=== PATIENT | female | born 1995 | race Caucasian/White ===

== ENCOUNTER 2019-03-12 17:13 | Emergency (ER) | payer OTHER ==
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
[2019-03-12] MEDS ORDERED: Sodium Chloride 0.9% 1,000 ML IV ONE (17:21)
[2019-03-12] MEDS ORDERED: cefTRIAXone 1 GM in Premix Bag 1 BAG IV ONE (18:02)
--- NOTE | 2019-03-12 19:23 | US ---
INDICATION: Early viability check. TECHNIQUE: Ultrasound OB pelvis transabdominal. Real-time espinoza-scale imaging of the fetus was performed as well as color Doppler and spectral Doppler analysis of the umbilical artery. COMPARISON: None. FINDINGS: Sonographic imaging demonstrates a single living intrauterine gestation. Fetus demonstrates a regular cardiac rate of 185 beats per minute. Fetus has a breech orientation. The placenta lies posterior without evidence of placenta previa. Amniotic fluid volume appears normal with an MYRANDA of 9.6 cm. Cervix measures 3.2 cm in length. The following biometric measurements were obtained: Biparietal diameter: 2.3 cm, 13 weeks 6 days. Head circumference: 8.9 cm, 14 weeks 0 days. Abdominal circumference: 6.9 cm, 13 weeks 4 days. Femur length: 1.1 cm, 13 weeks 2 days. The composite ultrasound gestational age is calculated at 13 weeks 4 days with an estimated sonographic due date of September 13, 2019. The weight is estimated at 76 grams. Ovaries and adnexa are unremarkable. IMPRESSION.: Viable intrauterine with an estimated ultrasound age of 13 weeks 4 days. No abnormalities seen. Dictated by Wilson West MD @ Mar 12 2019 7:14PM Signed by Dr. Wilson West @ Mar 12 2019 7:22PM
== END 2019-03-12 19:50 | disposition home or self-care (01) ==
LOC: MW.ED 17:13
DX: O99.89 Other specified diseases and conditions complicating pregnancy, childbirth and the puerperium (principal); R10.32 Left lower quadrant pain; R10.31 Right lower quadrant pain; R10.84 Generalized abdominal pain; O23.41 Unspecified infection of urinary tract in pregnancy, first trimester; Z88.0 Allergy status to penicillin; Z3A.13 13 weeks gestation of pregnancy
CPT/HCPCS: 76801; 81001; 84702; 85025; 86900; 86901; 96365; 99284; J0696; J7040

== ENCOUNTER 2019-03-19 19:20 | Emergency (ER) | payer OTHER ==
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
--- NOTE | 2019-03-19 21:39 | US ---
INDICATION: BLEEDING,HX UTI INDICATION: Bleeding history of urinary tract infection TECHNIQUE: Ultrasound OB pelvis transabdominal. Real time espinoza scale imaging of the fetus was performed as well as color Doppler and spectral Doppler analysis of the umbilical artery. COMPARISON: FINDINGS: LMP: 12/07/2018 Gestational age by LMP: 14 weeks 4 days Estimated due date by LMP: 12/07/2018 Sonographic imaging demonstrates a single living intrauterine gestation. Fetus demonstrates a regular cardiac rate of 158 beats per minute. Fetus has a breech orientation. The placenta lies posterior without evidence of placenta previa. Amniotic fluid volume appears normal. Cervix length 3.5 centimeters. The composite ultrasound gestational age is calculated at 15 weeks 1 day with an estimated sonographic due date of 14 weeks 4 days with estimated due date of 09/09/2019. The estimated weight is 110 grams. The following biometric measurements were obtained: Biparietal diameter: 2.85 centimeters consistent with a gestational age of 15 weeks 1 day Head circumference: 10.42 centimeters consistent with a gestational age of 15 weeks 0 days Abdominal circumference: 9.19 centimeters consistent with a gestational age of 15 weeks 3 days Femur length: 3.4 of 5 2 centimeters consistent with a gestational age 14 weeks 4 days survey not requested IMPRESSION: Single intrauterine with breech presentation and heart rate of 150 beats per minute. Composite gestational age by ultrasound evaluation 15 weeks 1 day. This compares the gestational age by LMP is 14 weeks 4 days. Normal-appearing placenta without evidence for previa. Dictated by Saul Juarez MD @ 03/19/2019 9:38:08 PM Dictated by: Saul Juarez MD @ 03/19/2019 21:38:20 (Electronically Signed)
== END 2019-03-19 22:03 | disposition home or self-care (01) ==
LOC: MW.ED 19:20
DX: O20.0 Threatened abortion (principal); O23.41 Unspecified infection of urinary tract in pregnancy, first trimester; Z88.0 Allergy status to penicillin; Z3A.14 14 weeks gestation of pregnancy
CPT/HCPCS: 36415; 76801; 76801-26; 85025; 99284; 99284-25

== ENCOUNTER 2019-09-11 20:13 | Inpatient (IN) | payer MEDICAID, OTHER ==
--- NOTE | 2019-09-11 22:50 | US ---
INDICATION: Limited care. Assess growth and biophysical profile TECHNIQUE: Limited transabdominal obstetrical ultrasound with biophysical profile COMPARISON: 03/19/2019 FINDINGS: A single live intrauterine gestation is seen in breech presentation. There is cardiac activity with a heart rate of 142 BPM. Estimated gestational age based on biparietal diameter, head circumference, abdominal circumference and femur length is 38 weeks and 6 days, compared to 39 weeks and 5 days by dates. anatomy is not evaluated. The amniotic fluid single deepest pocket measures 3.4 cm. An MYRANDA is measured at 12.6 cm. The placenta is posterior. The cervix is not seen. A biophysical profile was performed with a score of 2/2 for breathing, movement, tone and fluid volume, and a total score of 8/8. Neither ovary is visualized. IMPRESSION: A single live intrauterine gestation at 38 weeks and 6 days by sonographic measurements. A biophysical profile score of 8/8. anatomy is not evaluated. Nonvisualization of the ovaries. Dictated by Kvng Almanza MD @ 09/11/2019 10:39:30 PM Dictated by: Kvng Almanza MD @ 09/11/2019 22:49:17 (Electronically Signed)
--- NOTE | 2019-09-12 00:01 | HP ---
DATE OF : 1995 PRIMARY CARE PHYSICIAN: Aleena PCP CHIEF COMPLAINT: No OB care. HISTORY OF PRESENT ILLNESS: This is a 24-year-old female, G2, P0-1-0-1. She presents at 39-5/7 weeks' gestation for evaluation. She was having some irregular contractions upon initial evaluation, but without cervical change and her contractions resolved. She had 1 encounter at approximately 14 weeks' gestation with an emergency room visit with a finding of a 14-week ultrasound consistent with EDC by LMP of 09/13/2019. Since that time, she has had no care. She reports good movement. No loss of fluid. No vaginal bleeding. She states that she has been taking vitamins intermittently through , but they tend to make her sick, so she has discontinued them. Upon evaluation on Labor and Delivery, the fetus was noted to be breech. I did juvenile counselor the patient regarding options for breech presentation. Also noted was the baby is currently 7 pounds 14 ounces. Her prior delivery was a 6-week premature infant and we discussed that a vaginal breech delivery is not recommended at this time and also that an external cephalic version is less likely to be successful due to her late gestational age and the size of the fetus. Risks of were discussed including bleeding, infection, injury to bowel, bladder, blood vessels, or other organs, risk of thromboembolic event, and risk of anesthesia. Understanding all these risks, she does desire to proceed with a primary delivery due to breech presentation. PAST MEDICAL HISTORY: Significant for pyelonephritis. PAST SURGICAL HISTORY: None. ALLERGIES: To penicillin, which causes hives; squash, which causes anaphylaxis. She notes that she has taken cephalosporins in the past without difficulty. CURRENT MEDICATIONS: None except occasional vitamins. SOCIAL HISTORY: She denies use of tobacco, alcohol, or street drugs. She is sexually active. FAMILY HISTORY: Significant for her prior having a lymphatic disorder noted in the back of the neck, which required surgical intervention. Father with a collapsed lung. REVIEW OF SYSTEMS: Negative for headache, visual changes, shortness of breath, chest pain, dyspnea. Negative for rash. Negative for rheumatologic changes. Negative for neurologic changes. PHYSICAL EXAMINATION: VITAL SIGNS: Blood pressure is 145/85, pulse of 82, heart tones are 135, moderate variability with accelerations present, no contractions. GENERAL: She is alert and oriented, in no acute distress. NECK: Supple without lymphadenopathy or thyromegaly. Dentition is noted to be severe caries and gingivitis. LUNGS: Clear bilaterally. CV: Regular rate without murmur. ABDOMEN: Soft, gravid, nontender. EXTREMITIES: Show trace edema. VAGINAL: Cervix is fingertip and thick. LABORATORY STUDIES: Include hemoglobin of 12.6, platelet count of 171. Urinalysis is negative for protein. Urine drug screen is negative. Hepatitis B negative. HIV negative. Rubella immune. Blood type O positive. Antibody negative. Biophysical profile shows breech presentation with a score of 8/8, deepest pocket of amniotic fluid of 3.4 cm, MYRANDA of 12.6. ASSESSMENT AND PLAN: A 39-5/7-week intrauterine , breech presentation. The patient desires to proceed with a primary delivery. She has eaten approximately 2-1/2 hours ago. Therefore, we will proceed with a scheduled delivery at 8 a.m. Risks, alternatives, and benefits were discussed and she does desire to proceed. She has also consented for blood transfusion if needed. Additionally, we discussed the use of Ancef for prophylaxis for the section and she again confirms that she has not had anaphylaxis to penicillin and she does believe that she has had cephalosporin in the past without difficulty. STEFANIE GOTTI /[id number]
[2019-09-12] MEDS ORDERED: FLU Vacc QS2019-20(6MOS+)/PF 60 MCG/0.5 ML SYRINGE IM ONE (00:30)
[2019-09-12] MEDS ORDERED: ceFAZolin 2 GM in Premix Bag 1 BAG IV ONE (05:18)
[2019-09-12] MEDS ORDERED: Citric Acid/Sodium Citrate Solution 30 ML Cup PO ONE (05:19)
[2019-09-12] MEDS ORDERED: Lactated Ringers 2,000 ML IV ONE (06:45)
[2019-09-12] MEDS: Lactated Ringers 1,000 ML IV SCH ×3 (07:00→13:24)
[2019-09-12] MEDS ORDERED: Acetaminophen/oxyCODONE 325-5 MG Tab PO PRN (07:20)
--- NOTE | 2019-09-12 07:20 | PCM.PREANE ---
Preanesthetic Assessment - Anesthesia/Transfusion/Family Hx Anesthesia History: No Prior Anesthesia Family History of Anesthesia Reaction: No - Physical Assessment NPO Status Date: 09/12/19 NPO Status Time: 00:05 Height: 1.57 m Weight: 95.254 kg ASA Class: 1 - Lab Values: Laboratory Last Values WBC 10.65 K/uL (4.0-11.0) 09/11/19 21:17 RBC 4.31 M/uL (4.30-5.90) 09/11/19 21:17 Hgb 12.6 g/dL (12.0-16.0) 09/11/19 21:17 Hct 37.9 % (36.0-46.0) 09/11/19 21:17 MCV 87.9 fL (80.0-98.0) 09/11/19 21:17 MCH 29.2 pg (27.0-32.0) 09/11/19 21:17 MCHC 33.2 g/dL (31.0-37.0) 09/11/19 21:17 RDW Std Deviation 47.7 fl (28.0-62.0) 09/11/19 21:17 RDW Coeff of Jose E 15 % (11.0-15.0) 09/11/19 21:17 Plt Count 171 K/uL (150-400) 09/11/19 21:17 Neut % (Auto) 75.4 % (48.0-80.0) 09/11/19 21:17 Lymph % (Auto) 14.2 % (16.0-40.0) L 09/11/19 21:17 Ceiba % (Auto) 9.8 % (0.0-15.0) 09/11/19 21:17 Eos % (Auto) 0.5 % (0.0-7.0) 09/11/19 21:17 Baso % (Auto) 0.1 % (0.0-1.5) 09/11/19 21:17 Neut # (Auto) 8.0 K/uL (1.4-5.7) H 09/11/19 21:17 Lymph # (Auto) 1.5 K/uL (0.6-2.4) 09/11/19 21:17 Ceiba # (Auto) 1.0 K/uL (0.0-0.8) H 09/11/19 21:17 Eos # (Auto) 0.1 K/uL (0.0-0.7) 09/11/19 21:17 Baso # (Auto) 0.0 K/uL (0.0-0.1) 09/11/19 21:17 Nucleated RBC % 0.0 /100WBC 09/11/19 21:17 Nucleated RBCs # 0 K/uL 09/11/19 21:17 Urine Color YELLOW 09/11/19 20:00 Urine Appearance CLEAR 09/11/19 20:00 Urine pH 6.5 (5.0-8.0) 09/11/19 20:00 Ur Specific Henderson 1.025 (1.001-1.035) 09/11/19 20:00 Urine Protein NEGATIVE mg/dL (NEGATIVE) 09/11/19 20:00 Urine Glucose (UA) NEGATIVE mg/dL (NEGATIVE) 09/11/19 20:00 Urine Ketones NEGATIVE mg/dL (NEGATIVE) 09/11/19 20:00 Urine Occult Blood NEGATIVE (NEGATIVE) 09/11/19 20:00 Urine Nitrite NEGATIVE (NEGATIVE) 09/11/19 20:00 Urine Bilirubin NEGATIVE (NEGATIVE) 09/11/19 20:00 Urine Urobilinogen 0.2 EU/dL (<2.0) 09/11/19 20:00 Ur Leukocyte Esterase TRACE (NEGATIVE) H 09/11/19 20:00 Urine Opiates Screen NEGATIVE (NEGATIVE) 09/11/19 20:00 Ur Oxycodone Screen NEGATIVE (NEGATIVE) 09/11/19 20:00 Urine Methadone Screen NEGATIVE (NEGATIVE) 09/11/19 20:00 Ur Barbiturates Screen NEGATIVE (NEGATIVE) 09/11/19 20:00 Ur Phencyclidine Scrn NEGATIVE (NEGATIVE) 09/11/19 20:00 Ur Amphetamine Screen NEGATIVE (NEGATIVE) 09/11/19 20:00 U Methamphetamines Scrn NEGATIVE (NEGATIVE) 09/11/19 20:00 U Benzodiazepines Scrn NEGATIVE (NEGATIVE) 09/11/19 20:00 U Cocaine Metab Screen NEGATIVE (NEGATIVE) 09/11/19 20:00 U Marijuana (THC) Screen NEGATIVE (NEGATIVE) 09/11/19 20:00 Hep Bs Antigen Index < 0.1 INDEX (<1.0) 09/11/19 21:17 Hep Bs Antibody Index < 3.1 mIU/mL 09/11/19 21:17 HIV 1&2 Ag/Ab, 4th Gen < 0.1 INDEX (<1.0) 09/11/19 21:17 Rubella IgG Ab Index 189.7 IU/mL 09/11/19 21:17 Blood Type O POSITIVE 09/11/19 21:17 Antibody Screen NEGATIVE 09/11/19 21:17 - Allergies Allergies/Adverse Reactions: Allergies Allergy/AdvReac Type Severity Reaction Status Date / Time Penicillins Allergy Hives Verified 03/19/19 19:38 - Acknowledgements Anesthesia Type Planned: Spinal Pt an Appropriate Candidate for the Planned Anesthesia: Yes Alternatives and Risks of Anesthesia Discussed w Pt/Guardian: Yes Pt/Guardian Understands and Agrees with Anesthesia Plan: Yes PreAnesthesia Questionnaire - Past Health History Medical/Surgical History: Denies Medical/Surgical History 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: Reports: Musculoskeletal History: Reports: Fracture Other Musculoskeletal History: right wrist - Infectious Disease History Infectious Disease History: Reports: None - SUBSTANCE USE Tobacco Use Within Last Twelve Months: No Recreational Drug Use History: No - HOME MEDS Home Medications: Home Meds Comb No.42/Folic Acid [Prena1 Chew Tablet] 1.4 mg PO DAILY 03/19/19 [ History] - CURRENT (IN HOUSE) MEDS Current Meds: Current Medications Lactated Ringer's (Ringers, Lactated) 2,000 mls @ 999 mls/hr IV .BOLUS ONE Stop: 09/12/19 08:45 Discontinued Medications Citric Acid/Sodium Citrate (Bicitra Solution) 30 ml PO ONETIME ONE Stop: 09/12/19 05:20 Cefazolin Sodium/Dextrose 2 gm (/ Premix) 50 mls @ 100 mls/hr IV ONETIME ONE Stop: 09/12/19 05:47 Influenza Virus Vaccine (Fluzone Quad Syringe) 60 mcg IM .ONCE ONE Stop: 09/12/19 00:31
[2019-09-12] MEDS ORDERED: Morphine PF 10 MG/10 ML SDV ONE (07:23)
[2019-09-12] MEDS ORDERED: Phenylephrine/Normal Saline 100 MCG/ML 10 ML Syringe ONE (07:29)
[2019-09-12] MEDS ORDERED: ceFAZolin 1 GM Vial ONE (07:29)
[2019-09-12] MEDS ORDERED: ePHEDrine 50 MG/ML SDV ONE (07:29)
[2019-09-12] MEDS ORDERED: Ketorolac 30 MG/ML SDV ONE (07:29)
[2019-09-12] MEDS ORDERED: Sodium Chloride 0.9% 20 ML ONE (07:29)
[2019-09-12] MEDS ORDERED: Oxytocin 10 Units/1 ML SDV ONE (07:38)
[2019-09-12] MEDS ORDERED: Citric Acid/Sodium Citrate Solution 30 ML Cup ONE (07:42)
[2019-09-12] MEDS ORDERED: Octyl 2-Cyanoacrylate 1 Tube ONE (08:37)
[2019-09-12] MEDS ORDERED: fentaNYL 100 MCG/2 ML SDV IVPUSH PRN (08:39)
[2019-09-12] MEDS ORDERED: Nalbuphine 10 MG/1 ML Vial IVPUSH PRN (08:39)
[2019-09-12] MEDS: Ketorolac 30 MG/ML SDV IVPUSH SCH ×3 (08:48→22:41)
--- NOTE | 2019-09-12 08:49 | PCM.OPNOTE ---
- General Post-Op/Procedure Note Date of Surgery/Procedure: 09/12/19 Operative Procedure(s): primary low transverse Findings: Liveborn female 8/9 farheen breech presentation, normal pelvis, 3550 grams. Pre Op Diagnosis: 39 6/7 weeks farheen breech presentation, no care. Post-Op Diagnosis: Same Anesthesia Technique: Spinal Primary Surgeon: Vaishali Trujillo Anesthesia Provider: Vern Kerns Dealer Support Technician: Stan Joel Pathology: none Fluid Replacement, Intraop: 3,000 Output, Urine Amount: 300 EBL in mLs: 600 Complications: None Known Condition: Good
[2019-09-12] MEDS ORDERED: Bisacodyl 10 MG Supp RECTAL PRN (08:51)
[2019-09-12] MEDS ORDERED: Tranexamic Acid 1,000 MG in Sodium Chloride 0.9% 100 ML IV PRN (08:51)
[2019-09-12] MEDS ORDERED: Lanolin 100% Cream 7 GM Tube TOP PRN (08:51)
[2019-09-12] MEDS ORDERED: Misoprostol 200 MCG Tab RECTAL PRN (08:51)
[2019-09-12] MEDS ORDERED: Ondansetron 4 MG/2 ML SDV IVPUSH PRN (08:51)
[2019-09-12] MEDS ORDERED: Methylergonovine 0.2 MG/1 ML Amp IM PRN (08:51)
[2019-09-12] MEDS ORDERED: diphenhydrAMINE 50 MG/ML SDV IVPUSH PRN (08:51)
[2019-09-12] MEDS ORDERED: Oxytocin 10 Units/1 ML SDV IM PRN (08:51)
[2019-09-12] MEDS ORDERED: Oxytocin/Lactated Ringers 30 UNIT/500 ML BAG IV SCH (09:00)
--- NOTE | 2019-09-12 09:35 | PCM.POSTAN ---
POST ANESTHESIA ASSESSMENT - MENTAL STATUS Mental Status: Alert - RESPIRATORY Respiratory Status: Respiratory Rate WNL - CARDIOVASCULAR CV Status: Pulse Rate WNL - GASTROINTESTINAL GI Status: No Symptoms - POST OP HYDRATION Hydration Status: Adequate & Stable
[2019-09-12] MEDS: Docusate Sodium 100 MG Cap PO SCH (22:41)
[2019-09-13] MEDS: Ketorolac 30 MG/ML SDV IVPUSH SCH ×2 (04:05→09:40)
--- NOTE | 2019-09-13 07:36 | PCM48HPAN ---
Post Anesthesia Note - EVALUATION WITHIN 48HRS OF ANESTHETIC Vital Signs in Normal Range: Yes Patient Participated in Evaluation: Yes Respiratory Function Stable: Yes Airway Patent: Yes Cardiovascular Function Stable: Yes Hydration Status Stable: Yes Pain Control Satisfactory: Yes Nausea and Vomiting Control Satisfactory: Yes Mental Status Recovered: Yes Vital Signs: Last Vital Signs Temp 36.2 C 09/12/19 23:30 Pulse 85 09/13/19 04:00 Resp 16 09/13/19 06:00 BP 130/79 09/13/19 04:00 Pulse Ox 94 L 09/13/19 06:00
--- NOTE | 2019-09-13 08:54 | PCM.PNPP ---
- General Info Date of Service: 09/13/19 Functional Status: Reports: Pain Controlled, Tolerating Diet, Ambulating, Urinating - Review of Systems General: Reports: No Symptoms HEENT: Reports: No Symptoms Pulmonary: Reports: No Symptoms Cardiovascular: Reports: No Symptoms Gastrointestinal: Reports: No Symptoms Genitourinary: Reports: No Symptoms Musculoskeletal: Reports: No Symptoms Skin: Reports: No Symptoms Neurological: Reports: No Symptoms Psychiatric: Reports: No Symptoms - General Info Date of Service: 09/13/19 - Patient Data Vital Signs - Most Recent: Last Vital Signs Temp 36.2 C 09/12/19 23:30 Pulse 85 09/13/19 04:00 Resp 16 09/13/19 06:00 BP 130/79 09/13/19 04:00 Pulse Ox 94 L 09/13/19 06:00 Weight - Most Recent: 95.254 kg I&O - Last 24 Hours: Intake & Output 09/12/19 09/13/19 09/13/19 22:59 06:59 14:59 Output Total 400 2350 Balance -400 -2350 Lab Results - Last 24 Hours: Laboratory Results - last 24 hr 09/12/19 09/13/19 Range/Units 08:20 06:00 Hgb 10.8 L (12.0-16.0) g/dL Hct 33.4 L (36.0-46.0) % Cord ABG pH (7.18-7.38) Cord ABG Base Excess (-10--2) Cord VBG pH 7.325 (7.25-7.45) Cord VBG Base Excess -3 (-10--2) Med Orders - Current: Current Medications Bisacodyl (Dulcolax) 10 mg RECTAL ONETIME PRN PRN Reason: Constipation Diphenhydramine HCl (Benadryl) 25 mg IVPUSH Q6H PRN PRN Reason: Itching or Nausea Docusate Sodium (Colace) 100 mg PO BID MARILYN Last Admin: 09/12/19 22:41 Dose: 100 mg Emollient Ointment (Lansinoh Hpa) 0 gm TOP ASDIRECTED PRN PRN Reason: Sore Nipples Tranexamic Acid 1,000 mg/ (Sodium Chloride) 110 mls @ 660 mls/hr IV ONETIME PRN PRN Reason: Bleeding Lactated Ringer's (Ringers, Lactated) 1,000 mls @ 125 mls/hr IV ASDIRECTED [facility] Last Admin: 09/12/19 13:24 Dose: 999 mls/hr Oxytocin/Lactated Ringer's (Pitocin In Lr 30 Units/500 Ml) 30 unit in 500 mls @ 999 mls/hr IV TITRATE MARILYN; Protocol Ibuprofen (Motrin) 800 mg PO Q8H PRN PRN Reason: mild pain or fever Ketorolac Tromethamine (Toradol) 30 mg IVPUSH Q6H [facility] Stop: 09/13/19 09:01 Last Admin: 09/13/19 04:05 Dose: 30 mg Methylergonovine Maleate (Methergine) 0.2 mg IM ONETIME PRN PRN Reason: Excessive Vaginal Bleeding Misoprostol (Cytotec) 1,000 mcg RECTAL ONETIME PRN PRN Reason: excessive bleeding Ondansetron HCl (Zofran) 4 mg IVPUSH Q4H PRN PRN Reason: Nausea/Vomiting Last Admin: 09/12/19 08:00 Dose: 4 mg Oxycodone/Acetaminophen (Percocet 325-5 Mg) 1 tab PO Q4H PRN PRN Reason: Pain (moderate 4-6) Oxycodone/Acetaminophen (Percocet 325-5 Mg) 1 tab PO Q4H PRN PRN Reason: Pain (moderate 4-6) Oxycodone/Acetaminophen (Percocet 325-5 Mg) 2 tab PO Q4H PRN PRN Reason: Pain (moderate 4-6) Oxytocin (Pitocin) 10 unit IM ASDIRECTED PRN PRN Reason: Excessive Vaginal Bleeding Discontinued Medications Cefazolin Sodium (Ancef) Confirm Administered Dose 2 gm .ROUTE .STK-MED ONE Stop: 09/12/19 07:30 Citric Acid/Sodium Citrate (Bicitra Solution) 30 ml PO ONETIME ONE Stop: 09/12/19 05:20 Last Admin: 09/12/19 07:30 Dose: 30 ml Citric Acid/Sodium Citrate (Bicitra Solution) Confirm Administered Dose 30 ml .ROUTE .STK-MED ONE Stop: 09/12/19 07:43 Ephedrine Sulfate (Ephedrine Sulfate) Confirm Administered Dose 50 mg .ROUTE .STK-MED ONE Stop: 09/12/19 07:30 Fentanyl (Sublimaze) 50 mcg IVPUSH Q5M PRN PRN Reason: Pain (severe 7-10) Stop: 09/13/19 08:39 Cefazolin Sodium/Dextrose 2 gm (/ Premix) 50 mls @ 100 mls/hr IV ONETIME ONE Stop: 09/12/19 05:47 Lactated Ringer's (Ringers, Lactated) 2,000 mls @ 999 mls/hr IV .BOLUS ONE Stop: 09/12/19 08:45 Sodium Chloride (Normal Saline) Confirm Administered Dose 20 mls @ as directed .ROUTE .STK-MED ONE Stop: 09/12/19 07:30 Influenza Virus Vaccine (Fluzone Quad Syringe) 60 mcg IM .ONCE ONE Stop: 09/12/19 00:31 Ketorolac Tromethamine (Toradol) Confirm Administered Dose 30 mg .ROUTE .STK- MED ONE Stop: 09/12/19 07:30 Morphine Sulfate (Duramorph Pf) Confirm Administered Dose 10 mg .ROUTE .STK-MED ONE Stop: 09/12/19 07:24 Nalbuphine HCl (Nubain) 2.5 mg IVPUSH Q3H PRN PRN Reason: Pruritis Stop: 09/13/19 08:39 Octyl Cyanoacrylate (Dermabond Advance) Confirm Administered Dose 1 applic .ROUTE .STK-MED ONE Stop: 09/12/19 08:38 Oxytocin (Pitocin) Confirm Administered Dose 20 unit .ROUTE .STK-MED ONE Stop: 09/12/19 07:39 Phenylephrine HCl (Phenylephrine In Ns 100 Mcg/Ml) Confirm Administered Dose 1 mg .ROUTE .STK-MED ONE Stop: 09/12/19 07:30 - Interaction Support Person: - Recovery Exam Fundal Tone: Firm Fundal Level: 2 Fingerbreadths Below Umbilicus Fundal Placement: Midline Lochia Amount: Scant Lochia Color: Rubra/Red Perineum Description: Intact, Minimal Bruising/Swelling Episiotomy/Laceration: None Bladder Status: Indwelling Catheter in Place Urinary Elimination: Indwelling Catheter - Exam General: Alert, Oriented HEENT: Pupils Equal Neck: Supple Lungs: Clear to Auscultation, Normal Respiratory Effort Cardiovascular: Regular Rate, Regular Rhythm GI/Abdominal Exam: Normal Bowel Sounds, Soft, No Organomegaly, No Distention, No Mass Extremities: Normal Inspection, Non-Tender, No Pedal Edema Skin: Warm, Dry, Intact Wound/Incisions: Healing Well Neurological: No New Focal Deficit Psy/Mental Status: Alert, Normal Affect, Normal Mood - Problem List & Annotations (1) delivery indicated due to breech presentation SNOMED Code(s): 404984109, 508222978 Code(s): O32.1XX0 - MATERNAL CARE FOR BREECH PRESENTATION, UNSP Status: Acute Priority: High Current Visit: Yes (2) No care in current SNOMED Code(s): 116110914 Code(s): O09.30 - SUPRVSN OF PREG W INSUFFICIENT ANTENAT CARE, UNSP TRIMESTER Status: Acute Current Visit: Yes Qualifiers: Trimester: third trimester Qualified Code(s): O09.33 - Supervision of with insufficient care, third trimester - Problem List Review Problem List Initiated/Reviewed/Updated: Yes - My Orders Last 24 Hours: My Active Orders 09/12/19 08:51 Patient Status [ADT] Routine Ambulate [RC] PER UNIT ROUTINE Antiembolic Devices [RC] PER UNIT ROUTINE Communication Order [RC] PER UNIT ROUTINE Communication Order [RC] PER UNIT ROUTINE Communication Order [RC] Per Unit Routine May Shower [RC] ASDIRECTED Notify Provider Vital Signs [RC] ASDIRECTED RT Incentive Spirometry [RC] Q2HWA Vital Signs [RC] PER UNIT ROUTINE Acetaminophen/oxyCODONE [Percocet 325-5 MG] 1 tab PO Q4H PRN Acetaminophen/oxyCODONE [Percocet 325-5 MG] 2 tab PO Q4H PRN Lanolin [Lansinoh HPA] See Dose Instructions TOP ASDIRECTED PRN Methylergonovine [Methergine] 0.2 mg IM ONETIME PRN Ondansetron [Zofran] 4 mg IVPUSH Q4H PRN Oxytocin [Pitocin] 10 unit IM ASDIRECTED PRN Tranexamic Acid [Cyklokapron] 1,000 mg Sodium Chloride 0.9% [Normal Saline] 100 ml IV ONETIME bisacodyL [Dulcolax] 10 mg RECTAL ONETIME PRN diphenhydrAMINE [Benadryl] 25 mg IVPUSH Q6H PRN miSOPROStoL [Cytotec] 1,000 mcg RECTAL ONETIME PRN Abdominal Binder [OM.PC] Urgent Assess Lochia [WOMSER] Per Unit Routine Assess Uterine Involution [WOMSER] Per Unit Routine Breast Pump [WOMSER] Per Unit Routine Peripheral IV Discontinue [OM.PC] Routine Sequential Compression Device [OM.PC] Per Unit Routine Resuscitation Status Routine 09/12/19 08:52 Notify Provider Intake and Out [RC] ASDIRECTED 09/12/19 09:00 Docusate Sodium [Colace] 100 mg PO BID Ketorolac [Toradol] 30 mg IVPUSH Q6H Lactated Ringers [Ringers, Lactated] 1,000 ml IV ASDIRECTED Oxytocin/Lactated Ringers [Pitocin in LR 30 Units/500 ML] 30 unit in 500 ml IV TITRATE 09/12/19 Lunch Regular Diet [DIET] 09/13/19 15:00 Ibuprofen [Motrin] 800 mg PO Q8H PRN - Assessment Assessment:: POD#1 after primary low transverse for breech presentation. Tolerating diet, ambulating, pain well controlled, minimal lochia. well. - Plan Plan:: Continue care, transition to oral pain medications today, anticipate home tomorrow.
[2019-09-13] MEDS: Docusate Sodium 100 MG Cap PO SCH ×2 (09:39→21:27)
[2019-09-13] MEDS: Acetaminophen/oxyCODONE 325-5 MG Tab PO PRN ×2 (13:11→18:59)
[2019-09-14] MEDS: Ibuprofen 800 MG Tab PO PRN ×3 (00:40→17:13)
[2019-09-14] MEDS: Acetaminophen/oxyCODONE 325-5 MG Tab PO PRN ×5 (00:41→17:18)
--- NOTE | 2019-09-14 08:21 | OR ---
SURGEON: Vaishali Trujillo M.D. DATE OF PROCEDURE: 09/12/2019 PREOPERATIVE DIAGNOSES: A 39 6/7 weeks' intrauterine , breech presentation, no care. POSTOPERATIVE DIAGNOSES: A 39 6/7 weeks' intrauterine , breech presentation, no care. PROCEDURE: Primary low-transverse section. PRIMARY SURGEON: Vaishali Trujillo MD. ANESTHESIA: Spinal. ESTIMATED BLOOD LOSS: 600 mL. FLUIDS: 3000 mL of crystalloid. FINDINGS: Liveborn female. scores 8 and 9. Weight is 3550 g. Normal-appearing uterus, tubes, and ovaries. COMPLICATIONS: None known. DISPOSITION: Stable to Recovery. BRIEF HISTORY: This is a 24-year-old female, G2, P 0-1-0-1. She presents at 39 6/7 weeks' gestation with no care with complaint of contractions, but really for evaluation of well being. She had category 1 heart tones. She had labile blood pressures, none in the severe range. No proteinuria. On ultrasound, biophysical profile was 10/10. However, breech presentation was noted. I did senior counsel commercial the patient regarding management of breech presentation. I explained that breech vaginal delivery has an increased risk of injury and therefore is not recommended. External cephalic version can be performed, and I am willing to do so. However, the likelihood of success is less given the estimated weight of 7 pounds 14 ounces and late gestation and then finally option would be for a delivery. She desires to proceed with a C- section with risks discussed including bleeding; infection; injury to bowel, bladder, blood vessels, ureters, or other organs; risk of thromboembolic event; and risk of anesthesia. Understanding all these risks, she does desire to proceed. DESCRIPTION OF PROCEDURE: With the patient in left tilt position, under adequate spinal analgesia, the abdomen was prepped with chlorhexidine and draped in the usual fashion for abdominal surgery. SCDs were in place. Zavala catheter had been placed. An appropriate time-out was held. She had received 2 g of Ancef IV. After the abdomen was draped and documentation of adequate analgesia was performed, a transverse curvilinear incision was made 2 cm cephalad from the pubic symphysis, carried through the subcutaneous tissue to the fascia, which was scored transversely in the midline. The fascia was elevated from the underlying rectus muscle and using sharp and blunt dissection. The rectus muscles were then bluntly in the midline. A finger was used to enter the peritoneal cavity and the incision was extended with blunt dissection. The Eliot O retractor was placed. The visceroperitoneum over the lower uterine segment was incised to develop an adequate bladder flap. A transverse curvilinear incision was made over the lower uterine segment with a scalpel and amniotic membranes were entered. The incision was extended using cephalad and caudad traction. The breech was turned anteriorly, and with fundal pressure, the breech was delivered vaginally. The abdomen was then elevated, the arms were swept, the head was flexed, and the was delivered. The was bulb suctioned by nose and mouth. The cord was clamped x2 and cut, and the was handed to Dr. Huizar who was present at delivery. The was a liveborn female, scores 8 and 9, weighing 3550 g. Cord blood was collected for cord ABGs as well as routine cord blood sampling. Pitocin was initiated after delivery of the to assist with delivery of the placenta and for uterine contraction. The placenta was delivered by manual external massage. The uterus was cleaned with a dry laparotomy tape. The cervix was opened with ring forceps. The uterine incision was closed with a running lock suture of 0 Polysorb followed by an imbricating layer of 0 Polysorb. The tubes and ovaries were inspected and were normal. The pericolic gutters were cleaned with a wet laparotomy tape. The incision was inspected and was hemostatic; therefore, the Eliot retractor was removed. One final inspection was performed to confirm hemostasis and the incision was hemostatic. The rectus muscle and peritoneum were loosely approximated in the midline using a running mattress suture of 0 Polysorb. The posterior aspect of the fascia was inspected and was hemostatic. The fascial incision was closed with a running suture of 0 Polysorb. Subcutaneous tissue was irrigated. Any areas of bleeding that were noted were cauterized. The skin was closed with a running subcuticular suture of 3-0 Monocryl followed by Dermabond. Final sponge, needle, and instrument counts were reported as correct. There were no complications. Mother and baby are in Recovery in good condition. STEFANIE / ANA MARÍA /[id number]
[2019-09-14] MEDS: Docusate Sodium 100 MG Cap PO SCH ×3 (08:50→21:01)
--- NOTE | 2019-09-14 10:03 | PCM.PNPP ---
- General Info Date of Service: 09/14/19 Subjective Update: 24yo P2 s/p primary for breech , patient denies any complains , ambulating and tolerating regular diet Denies headache , RUQ pain and BV Functional Status: Reports: Pain Controlled, Tolerating Diet, Ambulating, Urinating - Review of Systems General: Reports: No Symptoms HEENT: Reports: No Symptoms Pulmonary: Reports: No Symptoms Cardiovascular: Reports: No Symptoms Gastrointestinal: Reports: No Symptoms Genitourinary: Reports: No Symptoms Musculoskeletal: Reports: No Symptoms Skin: Reports: No Symptoms Neurological: Reports: No Symptoms Psychiatric: Reports: No Symptoms - General Info Date of Service: 09/14/19 - Patient Data Vital Signs - Most Recent: Last Vital Signs Temp 36.4 C 09/14/19 04:30 Pulse 103 H 09/14/19 04:30 Resp 18 09/14/19 04:30 BP 135/95 H 09/14/19 04:30 Pulse Ox 99 09/14/19 04:30 Weight - Most Recent: 95.254 kg Med Orders - Current: Current Medications Bisacodyl (Dulcolax) 10 mg RECTAL ONETIME PRN PRN Reason: Constipation Diphenhydramine HCl (Benadryl) 25 mg IVPUSH Q6H PRN PRN Reason: Itching or Nausea Docusate Sodium (Colace) 100 mg PO BID [facility] Last Admin: 09/14/19 08:50 Dose: 100 mg Emollient Ointment (Lansinoh Hpa) 0 gm TOP ASDIRECTED PRN PRN Reason: Sore Nipples Last Admin: 09/13/19 20:05 Dose: 7 gm Tranexamic Acid 1,000 mg/ (Sodium Chloride) 110 mls @ 660 mls/hr IV ONETIME PRN PRN Reason: Bleeding Lactated Ringer's (Ringers, Lactated) 1,000 mls @ 125 mls/hr IV ASDIRECTED [facility] Last Admin: 09/12/19 13:24 Dose: 999 mls/hr Oxytocin/Lactated Ringer's (Pitocin In Lr 30 Units/500 Ml) 30 unit in 500 mls @ 999 mls/hr IV TITRATE [facility]; Protocol Ibuprofen (Motrin) 800 mg PO Q8H PRN PRN Reason: mild pain or fever Last Admin: 09/14/19 08:51 Dose: 800 mg Methylergonovine Maleate (Methergine) 0.2 mg IM ONETIME PRN PRN Reason: Excessive Vaginal Bleeding Misoprostol (Cytotec) 1,000 mcg RECTAL ONETIME PRN PRN Reason: excessive bleeding Ondansetron HCl (Zofran) 4 mg IVPUSH Q4H PRN PRN Reason: Nausea/Vomiting Last Admin: 09/12/19 08:00 Dose: 4 mg Oxycodone/Acetaminophen (Percocet 325-5 Mg) 1 tab PO Q4H PRN PRN Reason: Pain (moderate 4-6) Oxycodone/Acetaminophen (Percocet 325-5 Mg) 1 tab PO Q4H PRN PRN Reason: Pain (moderate 4-6) Last Admin: 09/14/19 08:50 Dose: 1 tab Oxycodone/Acetaminophen (Percocet 325-5 Mg) 2 tab PO Q4H PRN PRN Reason: Pain (moderate 4-6) Last Admin: 09/14/19 04:40 Dose: 2 tab Oxytocin (Pitocin) 10 unit IM ASDIRECTED PRN PRN Reason: Excessive Vaginal Bleeding Discontinued Medications Cefazolin Sodium (Ancef) Confirm Administered Dose 2 gm .ROUTE .STK-MED ONE Stop: 09/12/19 07:30 Citric Acid/Sodium Citrate (Bicitra Solution) 30 ml PO ONETIME ONE Stop: 09/12/19 05:20 Last Admin: 09/12/19 07:30 Dose: 30 ml Citric Acid/Sodium Citrate (Bicitra Solution) Confirm Administered Dose 30 ml .ROUTE .STK-MED ONE Stop: 09/12/19 07:43 Ephedrine Sulfate (Ephedrine Sulfate) Confirm Administered Dose 50 mg .ROUTE .STK-MED ONE Stop: 09/12/19 07:30 Fentanyl (Sublimaze) 50 mcg IVPUSH Q5M PRN PRN Reason: Pain (severe 7-10) Stop: 09/13/19 08:39 Cefazolin Sodium/Dextrose 2 gm (/ Premix) 50 mls @ 100 mls/hr IV ONETIME ONE Stop: 09/12/19 05:47 Lactated Ringer's (Ringers, Lactated) 2,000 mls @ 999 mls/hr IV .BOLUS ONE Stop: 09/12/19 08:45 Sodium Chloride (Normal Saline) Confirm Administered Dose 20 mls @ as directed .ROUTE .STK-MED ONE Stop: 09/12/19 07:30 Influenza Virus Vaccine (Fluzone Quad Syringe) 60 mcg IM .ONCE ONE Stop: 09/12/19 00:31 Ketorolac Tromethamine (Toradol) Confirm Administered Dose 30 mg .ROUTE .STK- MED ONE Stop: 09/12/19 07:30 Ketorolac Tromethamine (Toradol) 30 mg IVPUSH Q6H MARILYN Stop: 09/13/19 09:01 Last Admin: 09/13/19 09:40 Dose: 30 mg Morphine Sulfate (Duramorph Pf) Confirm Administered Dose 10 mg .ROUTE .STK-MED ONE Stop: 09/12/19 07:24 Nalbuphine HCl (Nubain) 2.5 mg IVPUSH Q3H PRN PRN Reason: Pruritis Stop: 09/13/19 08:39 Octyl Cyanoacrylate (Dermabond Advance) Confirm Administered Dose 1 applic .ROUTE .STK-MED ONE Stop: 09/12/19 08:38 Oxytocin (Pitocin) Confirm Administered Dose 20 unit .ROUTE .STK-MED ONE Stop: 09/12/19 07:39 Phenylephrine HCl (Phenylephrine In Ns 100 Mcg/Ml) Confirm Administered Dose 1 mg .ROUTE .STK-MED ONE Stop: 09/12/19 07:30 - Interaction Support Person: - Recovery Exam Fundal Tone: Firm Fundal Level: 2 Fingerbreadths Below Umbilicus Fundal Placement: Midline Lochia Amount: Scant Lochia Color: Rubra/Red Perineum Description: Intact, Minimal Bruising/Swelling Episiotomy/Laceration: None Bladder Status: Voiding Urinary Elimination: Indwelling Catheter - Exam General: Alert HEENT: Pupils Equal Neck: Supple Lungs: Clear to Auscultation Cardiovascular: Regular Rate, Regular Rhythm GI/Abdominal Exam: Normal Bowel Sounds Extremities: Normal Inspection Wound/Incisions: Healing Well, Dressing Dry and Intact Neurological: No New Focal Deficit Psy/Mental Status: Alert - Problem List & Annotations (1) delivery indicated due to breech presentation SNOMED Code(s): 203646831, 920740543 Code(s): O32.1XX0 - MATERNAL CARE FOR BREECH PRESENTATION, UNSP Status: Acute Priority: High Current Visit: Yes - Problem List Review Problem List Initiated/Reviewed/Updated: No - My Orders Last 24 Hours: My Active Orders 09/14/19 09:04 CMP [COMPREHENSIVE METABOLIC PN,CMP] [CHEM] Routine 09/14/19 09:05 EKG 12 Lead [EKG Documentation Completion] [RC] ROUTINE - Assessment Assessment:: POD#2 after primary low transverse for breech presentation. Tolerating diet, ambulating, pain well controlled, minimal lochia. well. Increase BP noticed this AM Irregular heart rhythm - Plan Plan:: Monitor BP today and CMP WIll do EKG care If labs normal and bp's not severe range , i will send home today Based on EKG results , may need cardiology referral
[2019-09-14 10:35] LABS: BLOOD UREA NITROGEN,BUN 5 mg/dL (7.0-18.0); CARBON DIOXIDE,CO2 26.8 mmol/L (21.0-32.0); CHLORIDE,CL 110 mmol/L (98-107); GLUCOSE RANDOM 82 mg/dL (74-106); SODIUM,NA 144 mmol/L (136-145)
--- NOTE | 2019-09-14 14:04 | US ---
INDICATION: Limited care. Assess growth and biophysical profile TECHNIQUE: Limited transabdominal obstetrical ultrasound with biophysical profile COMPARISON: 03/19/2019 FINDINGS: A single live intrauterine gestation is seen in breech presentation. There is cardiac activity with a heart rate of 142 BPM. Estimated gestational age based on biparietal diameter, head circumference, abdominal circumference and femur length is 38 weeks and 6 days, compared to 39 weeks and 5 days by dates. anatomy is not evaluated. The amniotic fluid single deepest pocket measures 3.4 cm. An MYRANDA is measured at 12.6 cm. The placenta is posterior. The cervix is not seen. A biophysical profile was performed with a score of 2/2 for breathing, movement, tone and fluid volume, and a total score of 8/8. Neither ovary is visualized. IMPRESSION: A single live intrauterine gestation at 38 weeks and 6 days by sonographic measurements. A biophysical profile score of 8/8. anatomy is not evaluated. Nonvisualization of the ovaries. MTDD
[2019-09-15] MEDS: Ibuprofen 800 MG Tab PO PRN (02:10)
--- NOTE | 2019-09-15 07:10 | PCM.PNPP ---
- General Info Date of Service: 09/15/19 Subjective Update: 24yo P2 s/p primary for breech POD3 , patient denies any complains , ambulating and tolerating regular diet Denies headache , RUQ pain and BV Patient with Premature ventricular contraction with irregular heart rhythm , she is asymptomatic I did a phone consult with Dr Calle and he recommends BMP with Magnessium level and follow up with primary care - Review of Systems General: Reports: No Symptoms HEENT: Reports: No Symptoms Pulmonary: Reports: No Symptoms Cardiovascular: Reports: No Symptoms Gastrointestinal: Reports: No Symptoms Genitourinary: Reports: No Symptoms Musculoskeletal: Reports: No Symptoms Skin: Reports: No Symptoms Neurological: Reports: No Symptoms Psychiatric: Reports: No Symptoms - General Info Date of Service: 09/15/19 - Patient Data Vital Signs - Most Recent: Last Vital Signs Temp 36.1 C 09/14/19 19:43 Pulse 91 09/14/19 19:43 Resp 15 09/14/19 19:43 BP 135/81 09/14/19 19:43 Pulse Ox 98 09/14/19 19:43 Weight - Most Recent: 95.254 kg Lab Results - Last 24 Hours: Laboratory Results - last 24 hr 09/14/19 09/14/19 09/14/19 Range/Units 09:36 09:36 09:36 WBC 8.88 (4.0-11.0) K/uL RBC 3.59 L (4.30-5.90) M/uL Hgb 10.3 L (12.0-16.0) g/dL Hct 32.8 L (36.0-46.0) % MCV 91.4 (80.0-98.0) fL MCH 28.7 (27.0-32.0) pg MCHC 31.4 (31.0-37.0) g/dL RDW Std Deviation 51.9 (28.0-62.0) fl RDW Coeff of Jose E 16 H (11.0-15.0) % Plt Count 144 L (150-400) K/uL MPV 13.60 H (7.40-12.00) fL Neut % (Auto) 68.6 (48.0-80.0) % Lymph % (Auto) 19.6 (16.0-40.0) % [place] % (Auto) 9.3 (0.0-15.0) % Eos % (Auto) 2.4 (0.0-7.0) % Baso % (Auto) 0.1 (0.0-1.5) % Neut # (Auto) 6.1 H (1.4-5.7) K/uL Lymph # (Auto) 1.7 (0.6-2.4) K/uL [place] # (Auto) 0.8 (0.0-0.8) K/uL Eos # (Auto) 0.2 (0.0-0.7) K/uL Baso # (Auto) 0.0 (0.0-0.1) K/uL Nucleated RBC % 0.0 /100WBC Nucleated RBCs # 0 K/uL Sodium 144 (136-145) mmol/L Potassium 4.0 (3.5-5.1) mmol/L Chloride 110 H (98-107) mmol/L Carbon Dioxide 26.8 (21.0-32.0) mmol/L BUN 5 L (7.0-18.0) mg/dL Creatinine 0.7 (0.6-1.0) mg/dL Est Cr Clr Drug Dosing 99.70 mL/min Estimated GFR (MDRD) > 60.0 ml/min Glucose 82 (74-106) mg/dL Calcium 8.1 L (8.5-10.1) mg/dL Magnesium 1.7 L (1.8-2.4) mg/dL Total Bilirubin 0.3 (0.2-1.0) mg/dL AST 12 L (15-37) IU/L ALT 12 L (14-63) IU/L Alkaline Phosphatase 91 (46-116) U/L Total Protein 6.1 L (6.4-8.2) g/dL Albumin 1.9 L (3.4-5.0) g/dL Globulin 4.2 H (2.6-4.0) g/dL Albumin/Globulin Ratio 0.5 L (0.9-1.6) Micro Results - Last 24 Hours: Microbiology 09/11/19 21:10 Group B Streptococcus Culture - Final Vaginal/Rectal NEGATIVE STREP GROUP B Med Orders - Current: Current Medications Bisacodyl (Dulcolax) 10 mg RECTAL ONETIME PRN PRN Reason: Constipation Diphenhydramine HCl (Benadryl) 25 mg IVPUSH Q6H PRN PRN Reason: Itching or Nausea Docusate Sodium (Colace) 100 mg PO BID [facility] Last Admin: 09/14/19 21:01 Dose: 100 mg Emollient Ointment (Lansinoh Hpa) 0 gm TOP ASDIRECTED PRN PRN Reason: Sore Nipples Last Admin: 09/13/19 20:05 Dose: 7 gm Tranexamic Acid 1,000 mg/ (Sodium Chloride) 110 mls @ 660 mls/hr IV ONETIME PRN PRN Reason: Bleeding Lactated Ringer's (Ringers, Lactated) 1,000 mls @ 125 mls/hr IV ASDIRECTED [facility] Last Admin: 09/12/19 13:24 Dose: 999 mls/hr Oxytocin/Lactated Ringer's (Pitocin In Lr 30 Units/500 Ml) 30 unit in 500 mls @ 999 mls/hr IV TITRATE [facility]; Protocol Ibuprofen (Motrin) 800 mg PO Q8H PRN PRN Reason: mild pain or fever Last Admin: 09/15/19 02:10 Dose: 800 mg Methylergonovine Maleate (Methergine) 0.2 mg IM ONETIME PRN PRN Reason: Excessive Vaginal Bleeding Misoprostol (Cytotec) 1,000 mcg RECTAL ONETIME PRN PRN Reason: excessive bleeding Ondansetron HCl (Zofran) 4 mg IVPUSH Q4H PRN PRN Reason: Nausea/Vomiting Last Admin: 09/12/19 08:00 Dose: 4 mg Oxycodone/Acetaminophen (Percocet 325-5 Mg) 1 tab PO Q4H PRN PRN Reason: Pain (moderate 4-6) Last Admin: 09/15/19 02:12 Dose: 1 tab Oxycodone/Acetaminophen (Percocet 325-5 Mg) 1 tab PO Q4H PRN PRN Reason: Pain (moderate 4-6) Last Admin: 09/14/19 17:18 Dose: 1 tab Oxycodone/Acetaminophen (Percocet 325-5 Mg) 2 tab PO Q4H PRN PRN Reason: Pain (moderate 4-6) Last Admin: 09/14/19 13:24 Dose: 2 tab Oxytocin (Pitocin) 10 unit IM ASDIRECTED PRN PRN Reason: Excessive Vaginal Bleeding Discontinued Medications Cefazolin Sodium (Ancef) Confirm Administered Dose 2 gm .ROUTE .STK-MED ONE Stop: 09/12/19 07:30 Citric Acid/Sodium Citrate (Bicitra Solution) 30 ml PO ONETIME ONE Stop: 09/12/19 05:20 Last Admin: 09/12/19 07:30 Dose: 30 ml Citric Acid/Sodium Citrate (Bicitra Solution) Confirm Administered Dose 30 ml .ROUTE .STK-MED ONE Stop: 09/12/19 07:43 Ephedrine Sulfate (Ephedrine Sulfate) Confirm Administered Dose 50 mg .ROUTE .STK-MED ONE Stop: 09/12/19 07:30 Fentanyl (Sublimaze) 50 mcg IVPUSH Q5M PRN PRN Reason: Pain (severe 7-10) Stop: 09/13/19 08:39 Cefazolin Sodium/Dextrose 2 gm (/ Premix) 50 mls @ 100 mls/hr IV ONETIME ONE Stop: 09/12/19 05:47 Lactated Ringer's (Ringers, Lactated) 2,000 mls @ 999 mls/hr IV .BOLUS ONE Stop: 09/12/19 08:45 Sodium Chloride (Normal Saline) Confirm Administered Dose 20 mls @ as directed .ROUTE .STK-MED ONE Stop: 09/12/19 07:30 Influenza Virus Vaccine (Fluzone Quad [id number] Syringe) 60 mcg IM .ONCE ONE Stop: 09/12/19 00:31 Ketorolac Tromethamine (Toradol) Confirm Administered Dose 30 mg .ROUTE .STK- MED ONE Stop: 09/12/19 07:30 Ketorolac Tromethamine (Toradol) 30 mg IVPUSH Q6H MARILYN Stop: 09/13/19 09:01 Last Admin: 09/13/19 09:40 Dose: 30 mg Morphine Sulfate (Duramorph Pf) Confirm Administered Dose 10 mg .ROUTE .STK-MED ONE Stop: 09/12/19 07:24 Nalbuphine HCl (Nubain) 2.5 mg IVPUSH Q3H PRN PRN Reason: Pruritis Stop: 09/13/19 08:39 Octyl Cyanoacrylate (Dermabond Advance) Confirm Administered Dose 1 applic .ROUTE .STK-MED ONE Stop: 09/12/19 08:38 Oxytocin (Pitocin) Confirm Administered Dose 20 unit .ROUTE .STK-MED ONE Stop: 09/12/19 07:39 Phenylephrine HCl (Phenylephrine In Ns 100 Mcg/Ml) Confirm Administered Dose 1 mg .ROUTE .STK-MED ONE Stop: 09/12/19 07:30 - Interaction Support Person: - Recovery Exam Fundal Tone: Firm Fundal Level: 2 Fingerbreadths Below Umbilicus Fundal Placement: Midline Lochia Amount: Scant Lochia Color: Rubra/Red Perineum Description: Intact, Minimal Bruising/Swelling Episiotomy/Laceration: None Bladder Status: Voiding Urinary Elimination: Voided - Exam General: Alert HEENT: Pupils Equal Neck: Supple Lungs: Clear to Auscultation Cardiovascular: Regular Rate, Regular Rhythm GI/Abdominal Exam: Normal Bowel Sounds Extremities: Normal Inspection Wound/Incisions: Dressing Dry and Intact Neurological: No New Focal Deficit - Problem List & Annotations (1) delivery indicated due to breech presentation SNOMED Code(s): 531862369, 148921112 Code(s): O32.1XX0 - MATERNAL CARE FOR BREECH PRESENTATION, UNSP Status: Acute Priority: High Current Visit: Yes - Problem List Review Problem List Initiated/Reviewed/Updated: No - My Orders Last 24 Hours: My Active Orders 09/14/19 09:05 EKG 12 Lead [EKG Documentation Completion] [RC] ROUTINE 09/14/19 10:04 Ready for Discharge [RC] PER UNIT ROUTINE - Assessment Assessment:: POD#3 after primary low transverse for breech presentation. Tolerating diet, ambulating, pain well controlled, minimal lochia. well. PVC , asymptomatic - Plan Plan:: Discharge home today Routine Follow up with primary care
[2019-09-15] MEDS: Docusate Sodium 100 MG Cap PO SCH (08:12)
[2019-09-15] MEDS: Acetaminophen/oxyCODONE 325-5 MG Tab PO PRN (08:13)
== END 2019-09-15 10:15 | disposition home or self-care (01) | DRG 788 ==
LOC: MW.OBCHECK 20:13 → MW.OB 20:13 → MW.OBCHECK 23:00 → MW.OB 23:00 → OBSVTOIN 09-12 08:51 → MW.OB 09-12 13:17
PROVIDERS: ADMIT Obstetrics & Gynecology; ATTEND Obstetrics & Gynecology
PROC: 10D00Z1 Extraction of Products of Conception, Low, Open Approach (ICD-10-PCS; principal; 2019-09-12)
DX: O32.1XX0 Maternal care for breech presentation, not applicable or unspecified (principal); Z3A.39 39 weeks gestation of pregnancy; Z37.0 Single live birth; Z88.0 Allergy status to penicillin; Z79.899 Other long term (current) drug therapy
CPT/HCPCS: 01961; 36415; 59025; 76815; 76815-26; 76819; 76819-26; 80053; 80305-QW; 81003; 82803; 83735; 85014; 85018; 85025; 86706; 86762; 86850; 86900; 86901; 87081; 87340; 87389; 87491; 87591; 93005; A9270-GY; J0690; J1885; J2270; J2370; J2405; J2590; J7120

== ENCOUNTER 2019-11-13 22:08 | Emergency (ER) | payer MEDICAID ==
[2019-11-13] MEDS ORDERED: Sodium Chloride 0.9% 2.5 ML Syringe FLUSH PRN (22:16)
[2019-11-13] MEDS ORDERED: MVI, Adult with Vitamin K 10 ML, Thiamine 100 MG, Folic Acid 1 MG in Sodium Chloride 0.... IV ONE ×4 (22:16)
[2019-11-13] MEDS ORDERED: Sodium Chloride 0.9% 10 ML Syringe FLUSH PRN (22:16)
--- NOTE | 2019-11-13 22:26 | EDM.PDOC ---
ED HPI GENERAL MEDICAL PROBLEM - General Chief Complaint: Drug or Alcohol Abuse Stated Complaint: AMBULANCE TRANS. Time Seen by Provider: 11/13/19 22:25 Source of Information: Reports: Patient, EMS Notes Reviewed History Limitations: Reports: No Limitations - History of Present Illness INITIAL COMMENTS - FREE TEXT/NARRATIVE: Intoxicated stating she drank 1/5 level of fireball. 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: Musculoskeletal History: Reports: Fracture Other Musculoskeletal History: right wrist - Infectious Disease History Infectious Disease History: Reports: None Social & Family History - Family History Family Medical History: Unobtainable - Caffeine Use Caffeine Use: Reports: None ED ROS GENERAL - Review of Systems Review Of Systems: See Below Constitutional: Reports: No Symptoms HEENT: Reports: No Symptoms Respiratory: Reports: No Symptoms Cardiovascular: Reports: No Symptoms Endocrine: Reports: No Symptoms GI/Abdominal: Reports: No Symptoms : Reports: No Symptoms Musculoskeletal: Reports: No Symptoms Skin: Reports: No Symptoms Neurological: Reports: No Symptoms Psychiatric: Reports: No Symptoms Hematologic/Lymphatic: Reports: No Symptoms Immunologic: Reports: No Symptoms - Physical Exam Exam: See Below Exam Limited By: No Limitations General Appearance: Alert, WD/WN, No Apparent Distress Eye Exam: Bilateral Eye: Normal Fundi, Normal Inspection Ears: Normal External Exam, Normal Canal Nose: Normal Inspection Throat/Mouth: Normal Inspection, Normal Lips, Normal Oropharynx, Normal Voice Head Exam: Atraumatic, Normocephalic Respiratory/Chest: No Respiratory Distress, Lungs Clear Cardiovascular: Normal Peripheral Pulses, Regular Rate, Rhythm GI/Abdominal: Normal Bowel Sounds, Soft, No Distention, No Abnormal Bruit (Female) Exam: Normal External Exam, Normal Speculum Exam Neuro Exam (Abbreviated): Alert, Oriented, CN II-XII Intact, Normal Cognition, Normal Reflexes, No Motor/Sensory Deficits Back Exam: Normal Inspection, Full Range of Motion Extremities: Normal Inspection, Normal Range of Motion, No Pedal Edema, Normal Capillary Refill Psychiatric: Normal Affect, Normal Mood Skin Exam: Warm, Dry, Intact, Normal Color Course - Vital Signs Text/Narrative:: This 24-year-old female presents emergency room with complaint of EtOH intoxication. Patient was celebrating her birthday and came in intoxicated and crying. Last Recorded V/S: Last Vital Signs Temp 96.6 F L 11/13/19 22:10 Pulse 88 11/13/19 23:54 Resp 20 11/13/19 23:54 BP 140/98 H 11/13/19 23:54 Pulse Ox 99 11/13/19 23:54 - Orders/Labs/Meds Orders: Active Orders 24 hr Category Date Time Status Sodium Chloride 0.9% [Saline Flush] Med 11/13/19 22:16 Active 10 ml FLUSH ASDIRECTED PRN Sodium Chloride 0.9% [Saline Flush] Med 11/13/19 22:16 Active 2.5 ml FLUSH ASDIRECTED PRN Saline Lock Insert [OM.PC] Stat Oth 11/13/19 22:16 Ordered Medication Orders Sodium Chloride (Saline Flush) 10 ml FLUSH ASDIRECTED PRN PRN Reason: Keep Vein Open Last Admin: 11/13/19 22:41 Dose: 10 ml Sodium Chloride (Saline Flush) 2.5 ml FLUSH ASDIRECTED PRN PRN Reason: Keep Vein Open Last Admin: 11/13/19 22:41 Dose: 2.5 ml Labs: Laboratory Tests 11/13/19 11/13/19 11/13/19 Range/Units 22:26 22:26 23:47 WBC 5.96 (4.0-11.0) K/uL RBC 4.46 (4.30-5.90) M/uL Hgb 12.8 (12.0-16.0) g/dL Hct 39.9 (36.0-46.0) % MCV 89.5 (80.0-98.0) fL MCH 28.7 (27.0-32.0) pg MCHC 32.1 (31.0-37.0) g/dL RDW Std Deviation 49.2 (28.0-62.0) fl RDW Coeff of Jose E 15 (11.0-15.0) % Plt Count 370 (150-400) K/uL MPV 11.00 (7.40-12.00) fL Neut % (Auto) 60.5 (48.0-80.0) % Lymph % (Auto) 32.7 (16.0-40.0) % [place] % (Auto) 5.2 (0.0-15.0) % Eos % (Auto) 1.3 (0.0-7.0) % Baso % (Auto) 0.3 (0.0-1.5) % Neut # (Auto) 3.6 (1.4-5.7) K/uL Lymph # (Auto) 2.0 (0.6-2.4) K/uL [place] # (Auto) 0.3 (0.0-0.8) K/uL Eos # (Auto) 0.1 (0.0-0.7) K/uL Baso # (Auto) 0.0 (0.0-0.1) K/uL Nucleated RBC % 0.0 /100WBC Nucleated RBCs # 0 K/uL Sodium 143 (136-145) mmol/L Potassium 3.4 L (3.5-5.1) mmol/L Chloride 105 (98-107) mmol/L Carbon Dioxide 21.3 (21.0-32.0) mmol/L BUN 9 (7.0-18.0) mg/dL Creatinine 0.9 (0.6-1.0) mg/dL Est Cr Clr Drug Dosing TNP Estimated GFR (MDRD) > 60.0 ml/min Glucose 101 (74-106) mg/dL Calcium 9.0 (8.5-10.1) mg/dL Total Bilirubin 0.1 L (0.2-1.0) mg/dL AST 13 L (15-37) IU/L ALT 21 (14-63) IU/L Alkaline Phosphatase 91 (46-116) U/L Total Protein 8.7 H (6.4-8.2) g/dL Albumin 3.4 (3.4-5.0) g/dL Globulin 5.3 H (2.6-4.0) g/dL Albumin/Globulin Ratio 0.6 L (0.9-1.6) Lipase 102 (73-393) U/L Urine Color YELLOW Urine Appearance CLEAR Urine pH 6.0 (5.0-8.0) Ur Specific [place] 1.015 (1.001-1.035) Urine Protein 30 H (NEGATIVE) mg/dL Urine Glucose (UA) NEGATIVE (NEGATIVE) mg/dL Urine Ketones NEGATIVE (NEGATIVE) mg/dL Urine Occult Blood NEGATIVE (NEGATIVE) Urine Nitrite NEGATIVE (NEGATIVE) Urine Bilirubin NEGATIVE (NEGATIVE) Urine Urobilinogen 0.2 (<2.0) EU/dL Ur Leukocyte Esterase NEGATIVE (NEGATIVE) Urine RBC 0-1 (0-2/HPF) Urine WBC 0-2 (0-5/HPF) Ur Epithelial Cells FEW (NONE-FEW) Urine Bacteria RARE (NEGATIVE) Urine Opiates Screen (NEGATIVE) Ur Oxycodone Screen (NEGATIVE) Urine Methadone Screen (NEGATIVE) Ur Barbiturates Screen (NEGATIVE) Ur Phencyclidine Scrn (NEGATIVE) Ur Amphetamine Screen (NEGATIVE) U Methamphetamines Scrn (NEGATIVE) U Benzodiazepines Scrn (NEGATIVE) U Cocaine Metab Screen (NEGATIVE) U Marijuana (THC) Screen (NEGATIVE) Ethyl Alcohol 259 mg/dL 11/13/19 Range/Units 23:47 WBC (4.0-11.0) K/uL RBC (4.30-5.90) M/uL Hgb (12.0-16.0) g/dL Hct (36.0-46.0) % MCV (80.0-98.0) fL MCH (27.0-32.0) pg MCHC (31.0-37.0) g/dL RDW Std Deviation (28.0-62.0) fl RDW Coeff of Jose E (11.0-15.0) % Plt Count (150-400) K/uL MPV (7.40-12.00) fL Neut % (Auto) (48.0-80.0) % Lymph % (Auto) (16.0-40.0) % [place] % (Auto) (0.0-15.0) % Eos % (Auto) (0.0-7.0) % Baso % (Auto) (0.0-1.5) % Neut # (Auto) (1.4-5.7) K/uL Lymph # (Auto) (0.6-2.4) K/uL [place] # (Auto) (0.0-0.8) K/uL Eos # (Auto) (0.0-0.7) K/uL Baso # (Auto) (0.0-0.1) K/uL Nucleated RBC % /100WBC Nucleated RBCs # K/uL Sodium (136-145) mmol/L Potassium (3.5-5.1) mmol/L Chloride (98-107) mmol/L Carbon Dioxide (21.0-32.0) mmol/L BUN (7.0-18.0) mg/dL Creatinine (0.6-1.0) mg/dL Est Cr Clr Drug Dosing Estimated GFR (MDRD) ml/min Glucose (74-106) mg/dL Calcium (8.5-10.1) mg/dL Total Bilirubin (0.2-1.0) mg/dL AST (15-37) IU/L ALT (14-63) IU/L Alkaline Phosphatase (46-116) U/L Total Protein (6.4-8.2) g/dL Albumin (3.4-5.0) g/dL Globulin (2.6-4.0) g/dL Albumin/Globulin Ratio (0.9-1.6) Lipase (73-393) U/L Urine Color Urine Appearance Urine pH (5.0-8.0) Ur Specific [place] (1.001-1.035) Urine Protein (NEGATIVE) mg/dL Urine Glucose (UA) (NEGATIVE) mg/dL Urine Ketones (NEGATIVE) mg/dL Urine Occult Blood (NEGATIVE) Urine Nitrite (NEGATIVE) Urine Bilirubin (NEGATIVE) Urine Urobilinogen (<2.0) EU/dL Ur Leukocyte Esterase (NEGATIVE) Urine RBC (0-2/HPF) Urine WBC (0-5/HPF) Ur Epithelial Cells (NONE-FEW) Urine Bacteria (NEGATIVE) Urine Opiates Screen NEGATIVE (NEGATIVE) Ur Oxycodone Screen NEGATIVE (NEGATIVE) Urine Methadone Screen NEGATIVE (NEGATIVE) Ur Barbiturates Screen NEGATIVE (NEGATIVE) Ur Phencyclidine Scrn NEGATIVE (NEGATIVE) Ur Amphetamine Screen NEGATIVE (NEGATIVE) U Methamphetamines Scrn NEGATIVE (NEGATIVE) U Benzodiazepines Scrn NEGATIVE (NEGATIVE) U Cocaine Metab Screen NEGATIVE (NEGATIVE) U Marijuana (THC) Screen NEGATIVE (NEGATIVE) Ethyl Alcohol mg/dL Meds: Medications Generic Name Dose Route Start Last Admin Trade Name Freq PRN Reason Stop Dose Admin Sodium Chloride 10 ml 11/13/19 22:16 11/13/19 22:41 Saline Flush FLUSH 10 ml ASDIRECTED PRN Administration Keep Vein Open Sodium Chloride 2.5 ml 11/13/19 22:16 11/13/19 22:41 Saline Flush FLUSH 2.5 ml ASDIRECTED PRN Administration Keep Vein Open Discontinued Medications Generic Name Dose Route Start Last Admin Trade Name Freq PRN Reason Stop Dose Admin Multivitamins/Minerals 10 ml/ 1,011.2 mls @ 999 mls/hr 11/13/19 22:16 22:41 Thiamine HCl 100 mg/ Folic IV 11/13/19 23:16 999 mls/hr Acid 1 mg/ Sodium Chloride STAT ONE Administration Departure - Departure Time of Disposition: 00:25 Disposition: Home, Self-Care 01 Condition: Good Clinical Impression: Alcohol abuse - Discharge Information Instructions: Alcohol Use Disorder, Alcohol Intoxication, [id number] Referrals: PCP,None [Primary Care Provider] - Forms: ED Department Discharge Sepsis Event Note - Evaluation Sepsis Screening Result: No Definite Risk - Focused Exam Vital Signs: Vital Signs Temp Pulse Resp BP Pulse Ox 11/13/19 23:54 88 20 140/98 H 99 11/13/19 22:43 102 H 20 140/103 H 99 11/13/19 22:10 96.6 F L 138 H 20 144/113 H 98 Date Exam was Performed: 11/14/19 Time Exam was Performed: 00:23 - My Orders Last 24 Hours: My Active Orders 11/13/19 22:16 Sodium Chloride 0.9% [Saline Flush] 10 ml FLUSH ASDIRECTED PRN Sodium Chloride 0.9% [Saline Flush] 2.5 ml FLUSH ASDIRECTED PRN Saline Lock Insert [OM.PC] Stat - Assessment/Plan Last 24 Hours: My Active Orders 11/13/19 22:16 Sodium Chloride 0.9% [Saline Flush] 10 ml FLUSH ASDIRECTED PRN Sodium Chloride 0.9% [Saline Flush] 2.5 ml FLUSH ASDIRECTED PRN Saline Lock Insert [OM.PC] Stat
[2019-11-13 23:02] LABS: BLOOD UREA NITROGEN,BUN 9 mg/dL (7.0-18.0); CARBON DIOXIDE,CO2 21.3 mmol/L (21.0-32.0); CHLORIDE,CL 105 mmol/L (98-107); GLUCOSE RANDOM 101 mg/dL (74-106); LIPASE 102 U/L (73-393); POTASSIUM,K 3.4 mmol/L (3.5-5.1); SODIUM,NA 143 mmol/L (136-145)
== END 2019-11-14 00:50 | disposition home or self-care (01) ==
LOC: MW.ED 22:08
DX: F10.129 Alcohol abuse with intoxication, unspecified (principal); Y90.8 Blood alcohol level of 240 mg/100 ml or more; Z88.0 Allergy status to penicillin
CPT/HCPCS: 36415; 80053; 80305-QW; 80307; 81001; 83690; 85025; 96365; 96366; 99283; 99284-25; J3411; J7030

== ENCOUNTER 2020-12-26 09:54 | Emergency (ER) | payer OTHER ==
--- NOTE | 2020-12-26 11:44 | CR ---
HISTORY: Right foot pain. TECHNIQUE: Two views of the right foot. COMPARISON: No prior. FINDINGS: No acute fracture or malalignment. No joint space narrowing or significant degenerative change. A small os trigonum is present. No radiopaque foreign body or soft tissue gas. IMPRESSION: No acute fracture or malalignment. Dictated by Benedict Long MD @ 12/26/2020 11:43:[address] Benedict Long @ Dec 26 2020 11:43AM
--- NOTE | 2020-12-26 11:48 | CR ---
HISTORY: Right ankle pain. TECHNIQUE: Three views of the right ankle. COMPARISON: No prior. FINDINGS: No fracture or malalignment. No widening of the ankle mortise. Os trigonum. No radiopaque foreign body or soft tissue gas. IMPRESSION: No acute fracture or malalignment. Dictated by Benedict Long MD @ 12/26/2020 11:47:[address] Benedict Long @ Dec 26 2020 11:47AM
--- NOTE | 2020-12-26 12:04 | EDM.PDOC ---
ED HPI GENERAL MEDICAL PROBLEM - General Chief Complaint: Lower Extremity Injury/Pain Stated Complaint: FELL AND HURT RT ANKLE Time Seen by Provider: 12/26/20 10:03 Source of Information: Reports: Patient History Limitations: Reports: No Limitations - History of Present Illness INITIAL COMMENTS - FREE TEXT/NARRATIVE: HISTORY AND PHYSICAL: History of present illness: Patient is a 25-year-old female who presents to the ED today with concern of right ankle injury that occurred just prior to arrival to the ED while at work. Patient states that she works for [employer] and was lifting packages into the back of the [employer] vehicle. Patient states that she "stepped funny "and twisted her right ankle and since then has had swelling of her outer ankle. Patient states that she has been able to put weight on it but does have some pain with doing so. Patient states that she did did not fall or hit her head or lose consciousness. Patient denies any sensation changes or any other symptoms or concerns. Patient states that she does have a history of hypertension but has not been taking her medications as she does not like the way that they make her feel according to patient. Patient denies fever, chills, chest pain, shortness of breath, or cough. Denies headache, neck stiff ness, change in vision, syncope, or near syncope. Denies nausea, vomiting, abdominal pain, diarrhea, constipation, or dysuria. Has not noted any blood in urine or stool. Patient has been eating and drinking appropriately. Review of systems: As per history of present illness and below otherwise all systems reviewed and negative. Past medical history: As per history of present illness and as reviewed below otherwise noncontributory. Surgical history: As per history of present illness and as reviewed below otherwise noncontributory.1. Encourage small but frequent sips of fluid to prevent dehydration. 2. Follow-up with your primary care provider as discussed. Return to the ED as needed and as discussed. Social history: See social history for further information Family history: As per history of present illness and as reviewed below otherwise noncontributory. Physical exam: General: Patient is alert, oriented, and in no acute distress. Patient sitting comfortably on exam table. Patient is noted to be hypertensive 220s over 150s on exam. Otherwise, vital stable and reviewed by me. HEENT: Atraumatic, normocephalic, pupils equal and reactive bilaterally, negative for conjunctival pallor or scleral icterus, mucous membranes moist, TMs normal bilaterally, throat clear, neck supple, nontender, trachea midline. No drooling or trismus noted. No meningeal signs. No hot potato voice noted. Lungs: Clear to auscultation, breath sounds equal bilaterally, chest nontender. Heart: S1S2, regular rate and rhythm without overt murmur Abdomen: Soft, nondistended, nontender. Negative for masses or hepatosplenomegaly. Negative for costovertebral tenderness. Pelvis: Stable nontender. Genitourinary: Deferred. Rectal: Deferred. Skin: Intact, warm, dry. No lesions or rashes noted. Extremities: There is mild edema noted to the lateral malleolus of the right ankle with pain to palpation of this area. Patient does have limited range of motion of the right ankle due to pain. Patient has complete intact sensation to light and deep touch of the right lower extremity. DP/PT pulses grossly intact of the RLE with cap refill < 2 seconds. Patient has full ROM of the remainder RLE. Otherwise, atraumatic, negative for cords or calf pain. Neurovascular unremarkable. Neuro: Awake, alert, oriented. Cranial nerves II through XII unremarkable. Cerebellum unremarkable. Motor and sensory unremarkable throughout. Exam nonfocal. Notes: Patient is a 25-year-old female, with a history of hypertension, who presents to the ED today with concern of right ankle injury. Upon arrival to the ED, patient is found to be hypertensive 220s over 150s otherwise vitally stable. She does have some edema noted to her lateral malleolus of the right ankle with limited range of motion of the ankle due to pain but intact neurovascular status of the right lower extremity. I did offer a full evaluation due to patient's elevated blood pressure, however she declines at this time. All risks versus benefits discussed with patient and expresses understanding. Will obtain x-ray imaging of patient's right ankle and foot. X-ray of ankle and foot show no acute fractures or malalignments. Strict return precautions thoroughly discussed with patient. Discussed importance for follow-up with a primary care provider and in regards to her high blood pressure. Encouraged taking her high blood pressure pills which she states that she has not been taking. Signs and symptoms that were prompt return to the ED thoroughly discussed with patient. Discussed importance for follow-up with a primary care provider. Voices understanding and is agreeable to plan of care. Denies any further questions or concerns at this time. Diagnostics: Foot and ankle x-ray, right Therapeutics: Aircast splint Prescription: None Impression: Right ankle injury Hypertension Medication noncompliance Plan: 1. Rest, ice, elevate the affected extremity. You can apply ice 15 minutes on, 15 minutes off. Encourage you to take your blood pressure medications that are prescribed to you. 2. Tylenol and/or Ibuprofen as directed for pain management or discomfort. 3. Follow up with the primary care provider as discussed. Return to the ED as needed and as discussed. Definitive disposition and diagnosis as appropriate pending reevaluation and review of above. right ankle Pain Score (Numeric/FACES): 5 - Related Data Allergies Allergy/AdvReac Type Severity Reaction Status Date / Time Penicillins Allergy Hives Verified 11/13/19 22:09 Home Meds: Home Meds Comb No.42/Folic Acid [Prena1 Chew Tablet] 1.4 mg PO DAILY 03/19/19 [History] Ibuprofen [Motrin] 800 mg PO Q8H PRN #30 tablet 09/13/19 [Rx] Past Medical History - Past Health History Medical/Surgical History: Denies Medical/Surgical History Respiratory History: Reports: Asthma Genitourinary History: Reports: Other (See Below) Other Genitourinary History: previous bladder infections when she was younger [employer] History: Reports: Musculoskeletal History: Reports: Fracture Other Musculoskeletal History: right wrist - Infectious Disease History Infectious Disease History: Reports: None - Past Surgical History Female Surgical History: Reports: Section Other Female Surgeries/Procedures: Had C/S delivery September 2019 Social & Family History - Family History Family Medical History: Unobtainable - Caffeine Use Caffeine Use: Reports: None Review of Systems - Review of Systems Review Of Systems: Comprehensive ROS is negative, except as noted in HPI. ED EXAM, GENERAL - Physical Exam Exam: See Below (See dictation) Course - Vital Signs Last Recorded V/S: Last Vital Signs Temp 98.1 F 12/26/20 12:36 Pulse 82 12/26/20 12:36 Resp 20 12/26/20 12:36 BP 188/112 H 12/26/20 12:36 Pulse Ox 98 12/26/20 12:36 Departure - Departure Time of Disposition: 12:03 Disposition: Home, Self-Care 01 Clinical Impression: Noncompliance with medication regimen Right ankle injury Qualifiers: Encounter type: initial encounter Qualified Code(s): S99.911A - Unspecified injury of right ankle, initial encounter Hypertension Qualifiers: Hypertension type: unspecified Qualified Code(s): I10 - Essential (primary) hypertension - Discharge Information Instructions: Ankle Sprain, Hypertension, Adult, [id number]-Jolm Referrals: PCP,None [Primary Care Provider] - Forms: ED Department Discharge Additional Instructions: The following information is given to patients seen in the emergency department who are being discharged to home. This information is to outline your options for follow-up care. We provide all patients seen in our emergency department with a follow-up referral. The need for follow-up, as well as the timing and circumstances, are variable depending upon the specifics of your emergency department visit. If you don't have a primary care physician on staff, we will provide you with a referral. We always advise you to contact your personal physician following an emergency department visit to inform them of the circumstance of the visit and for follow-up with them and/or the need for any referrals to a consulting specialist. The emergency department will also refer you to a specialist when appropriate. This referral assures that you have the opportunity for follow-up care with a specialist. All of these measure are taken in an effort to provide you with optimal care, which includes your follow-up. Under all circumstances we always encourage you to contact your private physician who remains a resource for coordinating your care. When calling for follow-up care, please make the office aware that this follow-up is from your recent emergency room visit. If for any reason you are refused follow-up, please contact the [facility] Emergency Department at and asked to speak to the emergency department charge nurse. [facility] [address] [place] [id number] [address] 1. Rest, ice, elevate the affected extremity. You can apply ice 15 minutes on, 15 minutes off. Encourage you to take your blood pressure medications that are prescribed to you. 2. Tylenol and/or Ibuprofen as directed for pain management or discomfort. 3. Follow up with the primary care provider as discussed. Return to the ED as needed and as discussed. Sepsis Event Note (ED) - Evaluation Sepsis Screening Result: No Definite Risk
== END 2020-12-26 12:37 | disposition home or self-care (01) ==
LOC: MW.ED 09:54
DX: S99.911A Unspecified injury of right ankle, initial encounter (principal); I10 Essential (primary) hypertension; Z91.19 Patient's noncompliance with other medical treatment and regimen; Z88.0 Allergy status to penicillin; X50.1XXA Overexertion from prolonged static or awkward postures, initial encounter; Y99.0 Civilian activity done for income or pay
CPT/HCPCS: 73610-26-RT; 73610-RT; 73620-26-RT; 73620-RT; 99283

== ENCOUNTER 2021-05-03 12:43 | Emergency (ER) | payer SELFPAY ==
[2021-05-03] MEDS ORDERED: Sodium Chloride 0.9% 1,000 ML IV ONE ×2 (13:51→13:57)
[2021-05-03] MEDS ORDERED: Ketorolac 30 MG/ML SDV IVPUSH ONE (13:51)
[2021-05-03] MEDS ORDERED: Ondansetron 4 MG/2 ML SDV IVPUSH ONE (13:51)
[2021-05-03] MEDS ORDERED: cefTRIAXone 1 GM in Premix Bag 1 BAG IV ONE (14:15)
[2021-05-03 14:36] LABS: BLOOD UREA NITROGEN,BUN 15 mg/dL (7.0-18.0); CARBON DIOXIDE,CO2 22.9 mmol/L (21.0-32.0); CHLORIDE,CL 99 mmol/L (98-107); GLUCOSE RANDOM 130 mg/dL (74-106); LIPASE 24 U/L (73-393); POTASSIUM,K 3.6 mmol/L (3.5-5.1); SODIUM,NA 135 mmol/L (136-145)
[2021-05-03] MEDS ORDERED: Iopamidol 755 MG/ML 500 ML Multipack Bottle IVPUSH STA (14:40)
[2021-05-03] MEDS ORDERED: Morphine 4 MG/ML Syringe IVPUSH ONE (15:01)
[2021-05-03] MEDS ORDERED: Acetaminophen 500 MG Tab PO ONE (15:22)
--- NOTE | 2021-05-03 15:41 | CT ---
INDICATION: Abdominal pain. TECHNIQUE: CT of the abdomen and pelvis with 100 cc Isovue 370 IV contrast. Coronal and sagittal reconstructions. COMPARISON: None. FINDINGS: Diffuse hepatic steatosis. The gallbladder, spleen, pancreas, and adrenal glands are negative. No biliary dilation. Hepatic and portal veins are patent. There is a 9 mm obstructing stone in the proximal left ureter with mild left hydronephrosis (series 201, image 78 and series 203, image 55). The left kidney is enlarged with delayed nephrogram and perinephric fat stranding. There is also mild urothelial thickening in the left renal pelvis. lobulation of the right kidney. The right kidney enhances normally. No right hydronephrosis or ureteral dilation. No right-sided urinary calculi identified. Underdistended thick-walled urinary bladder. Small gastric diverticulum. No bowel dilation. Negative appendix. No intraperitoneal free air or fluid. The uterus is mildly prominent in size. Bilateral ovarian follicles. Few prominent left periaortic lymph nodes are likely reactive. No lymphadenopathy by size criteria. There are some collateral vessels about the left kidney. The bones are unremarkable. The lung bases are clear. IMPRESSION: 1. 9 mm obstructing stone in the proximal left ureter with mild left hydronephrosis, delayed left nephrogram, and perinephric fat stranding. 2. Diffuse bladder wall thickening could be due to underdistention or inflammation. Correlate with urinalysis. 3. Diffuse hepatic steatosis. Please note that all CT scans at this facility use dose modulation, iterative reconstruction, and/or weight-based dosing when appropriate to reduce radiation dose to as low as reasonably achievable. Dictated by Teena Starr MD @ 05/03/2021 3:40:39 PM (Electronically Signed)
--- NOTE | 2021-05-03 16:09 | EDM.PDOC ---
ED HPI GENERAL MEDICAL PROBLEM - General Chief Complaint: Genitourinary Problem Stated Complaint: fever,vomitting, kidneys hurt Time Seen by Provider: 05/03/21 13:00 Source of Information: Reports: Patient History Limitations: Reports: No Limitations - History of Present Illness INITIAL COMMENTS - FREE TEXT/NARRATIVE: HISTORY AND PHYSICAL: History of present illness: Patient is a 26-year-old female who resents emergency room today with concern of left-sided flank pain, lower abdominal pain, nausea, vomiting x3 days. Patient states starting today, she began developing fever so came to the emergency room for further evaluation. Patient states she has a history of tubal ligation so is not . Patient states that she has not been able to take anything for her fevers as she continues to vomit if she tries. Patient states she did take Aleve earlier this morning but vomited approximately 5 minutes later. Patient states her T-max at home was 102 orally. Patient states she has a history of deliveries but denies any other abdominal surgeries. Patient states she has had more frequency of stools secondary with her symptoms. Denies any other health history. Patient denies chest pain, shortness of breath, or cough. Denies headache, neck stiff ness, change in vision, syncope, or near syncope. Denies constipation, or dysuria. Has not noted any blood in urine or stool. Review of systems: As per history of present illness and below otherwise all systems reviewed and negative. Past medical history: As per history of present illness and as reviewed below otherwise noncontributory. Surgical history: As per history of present illness and as reviewed below otherwise noncontributory. Social history: See social history for further information Family history: As per history of present illness and as reviewed below otherwise noncontributory. Physical exam: General: Patient is alert, oriented, and tired appearing/diaphoretic otherwise in no acute distress. Patient sitting comfortably on exam table. Patient febrile 101.3 on exam, tachycardic 120s, otherwise vitally stable and reviewed by me. HEENT: Atraumatic, normocephalic, pupils equal and reactive bilaterally, negative for conjunctival pallor or scleral icterus, mucous membranes dry, throat clear, neck supple, nontender, trachea midline. No drooling or trismus noted. No meningeal signs. No hot potato voice noted. Lungs: Clear to auscultation, breath sounds equal bilaterally, chest nontender. Heart: S1S2, regular rate and rhythm without overt murmur Abdomen: Soft, nondistended, moderate RLQ/LLQ tenderness without guarding, negative rebound/alonzo. Negative for masses or hepatosplenomegaly. Positive for costovertebral tenderness greater on left. Pelvis: Stable nontender. Genitourinary: Deferred. Rectal: Deferred. Skin: Intact, warm, dry. No lesions or rashes noted. Extremities: Atraumatic, negative for cords or calf pain. Neurovascular unremarkable. Neuro: Awake, alert, oriented. Cranial nerves II through XII unremarkable. Cerebellum unremarkable. Motor and sensory unremarkable throughout. Exam nonfocal. Notes: Patient is a 26-year-old female, who presents emergency room today with concern of nausea, vomiting, left-sided flank and lower abdominal pain x3 days with onset of fever today. Upon arrival to the ED, patient is febrile 101.3 on exam, tachycardic 120s, otherwise vitally stable. Patient does have moderate lower abdominal tenderness with left-sided CVA tenderness on exam. Will obtain IV access, initiate a 30 cc/kg bolus, obtain urinalysis, lab work with urine and blood cultures, with abdominal pelvic CT scan. See Dr. Garcia's dictation for specific EKG interpretation. However, sinus rhythm without STEMI. CBC shows leukocytosis at 13.88 (lactate within normal limits), with elevation in neutrophil percent at 88.3, otherwise mild derangements of CBC unremarkable. CMP shows mild hyponatremia at 135, creatinine mildly elevated in isolation at 1.1, glucose mildly elevated at 130, total bilirubin mildly elevated at 1.1, otherwise mild derangements of CMP unremarkable. Lipase within normal limits. Urinalysis is positive nitrate, positive leukocyte esterase with 10-20 red blood cells, 2-5 white blood cells with occasional bacteria. hCG negative. Rocephin 1IV initiated. Abdominal pelvic CT scan shows a 9 mm obstructing stone in the proximal left ureter with mild left hydronephrosis, delayed left nephrogram, and perinephritic fat stranding. Diffuse bladder wall thickening could be underdistention versus inflammation. Diffuse hepatic steatosis. (All incidental findings of imaging today discussed with patient and the importance to have this followed up with a primary care provider at a later date) Upon reevaluation of patient, she remains febrile at 101, tachycardia has mildly improved to 110s on exam, and patient remains otherwise vitally stable. At this time, patient has received a total of 30 cc/kg bolus of normal saline, 1 g IV Rocephin, pending blood cultures and urine culture. I did call and speak to the urologist on-call for [facility] Dr. Jonas, and thoroughly discussed patient's case. Recommending transfer for stent placement. I then spoke to Dr. Shepherd, emergency room provider at [facility], and agreeable to transfer and accepting of transfer. EMS arranged. Patient transferred to EMS in stable condition. Voices understanding and is agreeable to plan of care. Denies any further questions or concerns at this time. Diagnostics: EKG, CBC, CMP, UA, urine culture, lipase, hCG, lactate, blood cultures x2, abdominal pelvic CT scan Therapeutics: Normal saline, Rocephin, Toradol, extra strength Tylenol, morphine, Zofran Impression: Ureterolithiasis with acute pyelonephritis SEPSIS Plan: Transfer to [facility] to Dr. Shepherd (ER provider) and Dr. Jonas (urology) via EMS Definitive disposition and diagnosis as appropriate pending reevaluation and review of above. Left Flank Pain Score (Numeric/FACES): 7 - Related Data Allergies Allergy/AdvReac Type Severity Reaction Status Date / Time Penicillins Allergy Hives Verified 11/13/19 22:09 Home Meds: Home Meds . 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[employer]IVE History: Reports: Musculoskeletal History: Reports: Fracture Other Musculoskeletal History: right wrist - Infectious Disease History Infectious Disease History: Reports: None - Past Surgical History Cardiovascular Surgical History: Reports: None Female Surgical History: Reports: Section Other Female Surgeries/Procedures: Had C/S delivery September 2019 Social & Family History - Family History Family Medical History: Unobtainable - Tobacco Use Tobacco Use Status *Q: Never Tobacco User - Caffeine Use Caffeine Use: Reports: None - Recreational Drug Use Recreational Drug Use: No ED ROS GENERAL - Review of Systems Review Of Systems: Comprehensive ROS is negative, except as noted in HPI. ED EXAM, GENERAL - Physical Exam Exam: See Below (see dictation) Course - Vital Signs Last Recorded V/S: Last Vital Signs Temp 99.3 F 05/03/21 16:45 Pulse 92 05/03/21 16:45 Resp 17 05/03/21 16:45 BP 149/96 H 05/03/21 16:45 Pulse Ox 96 05/03/21 16:45 - Orders/Labs/Meds Orders: Active Orders 24 hr Category Date Time Status CULTURE BLOOD [BC] Stat Lab 05/03/21 13:56 Received CULTURE BLOOD [BC] Stat Lab 05/03/21 14:21 Received CULTURE URINE [MREF] Stat Lab 05/03/21 13:44 Received Sodium Chloride 0.9% [Normal Saline] 1,000 ml Med 05/03/21 16:15 Active IV STAT Blood Culture x2 Reflex Set [OM.PC] Stat Oth 05/03/21 13:56 Ordered Medication Orders Sodium Chloride (Normal Saline) 1,000 mls @ 125 mls/hr IV STAT MARILYN Last Admin: 05/03/21 16:23 Dose: 125 mls/hr Documented by: JORI Labs: Laboratory Tests 05/03/21 05/03/21 05/03/21 Range/Units 13:44 13:45 13:56 WBC 13.88 H (4.0-11.0) K/uL RBC 4.35 (4.30-5.90) M/uL Hgb 13.6 (12.0-16.0) g/dL Hct 39.7 (36.0-46.0) % MCV 91.3 (80.0-98.0) fL MCH 31.3 (27.0-32.0) pg MCHC 34.3 (31.0-37.0) g/dL RDW Std Deviation 44.1 (28.0-62.0) fl RDW Coeff of Jose E 13 (11.0-15.0) % Plt Count 221 (150-400) K/uL MPV 12.40 H (7.40-12.00) fL Neut % (Auto) 88.3 H (48.0-80.0) % Lymph % (Auto) 3.9 L (16.0-40.0) % [place] % (Auto) 7.7 (0.0-15.0) % Eos % (Auto) 0.0 (0.0-7.0) % Baso % (Auto) 0.1 (0.0-1.5) % Neut # (Auto) 12.3 H (1.4-5.7) K/uL Lymph # (Auto) 0.5 L (0.6-2.4) K/uL [place] # (Auto) 1.1 H (0.0-0.8) K/uL Eos # (Auto) 0.0 (0.0-0.7) K/uL Baso # (Auto) 0.0 (0.0-0.1) K/uL Nucleated RBC % 0.0 /100WBC Nucleated RBCs # 0 K/uL Sodium (136-145) mmol/L Potassium (3.5-5.1) mmol/L Chloride (98-107) mmol/L Carbon Dioxide (21.0-32.0) mmol/L BUN (7.0-18.0) mg/dL Creatinine (0.6-1.0) mg/dL Est Cr Clr Drug Dosing mL/min Estimated GFR (MDRD) ml/min Glucose (74-106) mg/dL Lactic Acid (0.4-2.0) mmol/L Calcium (8.5-10.1) mg/dL Total Bilirubin (0.2-1.0) mg/dL AST (15-37) IU/L ALT (14-63) IU/L Alkaline Phosphatase (46-116) U/L Total Protein (6.4-8.2) g/dL Albumin (3.4-5.0) g/dL Globulin (2.6-4.0) g/dL Albumin/Globulin Ratio (0.9-1.6) Lipase (73-393) U/L Urine Color YELLOW Urine Appearance SLT CLOUDY Urine pH 6.0 (5.0-8.0) Ur Specific [place] 1.025 (1.001-1.035) Urine Protein 100 H (NEGATIVE) mg/dL Urine Glucose (UA) NEGATIVE (NEGATIVE) mg/dL Urine Ketones 40 H (NEGATIVE) mg/dL Urine Occult Blood MODERATE H (NEGATIVE) Urine Nitrite POSITIVE H (NEGATIVE) Urine Bilirubin NEGATIVE (NEGATIVE) Urine Urobilinogen 1.0 (<2.0) EU/dL Ur Leukocyte Esterase TRACE H (NEGATIVE) Urine RBC 10-20 (0-2/HPF) Urine WBC 2-5 (0-5/HPF) Ur Epithelial Cells MODERATE (NONE-FEW) Urine Bacteria OCCASIONAL (NEGATIVE) Urine HCG, Qual NEGATIVE (NEGATIVE) SARS-CoV-2 RNA (KACEY) (NEGATIVE) 05/03/21 05/03/21 05/03/21 Range/Units 13:56 13:56 15:45 WBC (4.0-11.0) K/uL RBC (4.30-5.90) M/uL Hgb (12.0-16.0) g/dL Hct (36.0-46.0) % MCV (80.0-98.0) fL MCH (27.0-32.0) pg MCHC (31.0-37.0) g/dL RDW Std Deviation (28.0-62.0) fl RDW Coeff of Jose E (11.0-15.0) % Plt Count (150-400) K/uL MPV (7.40-12.00) fL Neut % (Auto) (48.0-80.0) % Lymph % (Auto) (16.0-40.0) % [place] % (Auto) (0.0-15.0) % Eos % (Auto) (0.0-7.0) % Baso % (Auto) (0.0-1.5) % Neut # (Auto) (1.4-5.7) K/uL Lymph # (Auto) (0.6-2.4) K/uL [place] # (Auto) (0.0-0.8) K/uL Eos # (Auto) (0.0-0.7) K/uL Baso # (Auto) (0.0-0.1) K/uL Nucleated RBC % /100WBC Nucleated RBCs # K/uL Sodium 135 L (136-145) mmol/L Potassium 3.6 (3.5-5.1) mmol/L Chloride 99 (98-107) mmol/L Carbon Dioxide 22.9 (21.0-32.0) mmol/L BUN 15 (7.0-18.0) mg/dL Creatinine 1.1 H (0.6-1.0) mg/dL Est Cr Clr Drug Dosing 62.37 mL/min Estimated GFR (MDRD) > 60.0 ml/min Glucose 130 H (74-106) mg/dL Lactic Acid 0.9 (0.4-2.0) mmol/L Calcium 9.1 (8.5-10.1) mg/dL Total Bilirubin 1.1 H (0.2-1.0) mg/dL AST 15 (15-37) IU/L ALT 21 (14-63) IU/L Alkaline Phosphatase 67 (46-116) U/L Total Protein 8.7 H (6.4-8.2) g/dL Albumin 3.5 (3.4-5.0) g/dL Globulin 5.2 H (2.6-4.0) g/dL Albumin/Globulin Ratio 0.7 L (0.9-1.6) Lipase 24 L (73-393) U/L Urine Color Urine Appearance Urine pH (5.0-8.0) Ur Specific [place] (1.001-1.035) Urine Protein (NEGATIVE) mg/dL Urine Glucose (UA) (NEGATIVE) mg/dL Urine Ketones (NEGATIVE) mg/dL Urine Occult Blood (NEGATIVE) Urine Nitrite (NEGATIVE) Urine Bilirubin (NEGATIVE) Urine Urobilinogen (<2.0) EU/dL Ur Leukocyte Esterase (NEGATIVE) Urine RBC (0-2/HPF) Urine WBC (0-5/HPF) Ur Epithelial Cells (NONE-FEW) Urine Bacteria (NEGATIVE) Urine HCG, Qual (NEGATIVE) SARS-CoV-2 RNA (KACEY) NEGATIVE (NEGATIVE) Meds: Medications Generic Name Dose Route Start Last Admin Trade Name Freq PRN Reason Stop Dose Admin Sodium Chloride 1,000 mls @ 125 mls/hr 05/03/21 16:15 05/03/21 16:23 Normal Saline IV 125 mls/hr STAT MARILYN Administration Discontinued Medications Generic Name Dose Route Start Last Admin Trade Name Freq PRN Reason Stop Dose Admin Acetaminophen 1,000 mg 05/03/21 15:22 05/03/21 15:26 Acetaminophen 500 Mg Tab PO 05/03/21 15:23 1,000 mg ONETIME ONE Administration Sodium Chloride 1,000 mls @ 999 mls/hr 05/03/21 13:51 05/03/21 14:19 Normal Saline IV 05/03/21 14:51 999 mls/hr BOLUS ONE Administration Sodium Chloride 1,000 mls @ 999 mls/hr 05/03/21 13:57 05/03/21 14:19 Normal Saline IV 05/03/21 14:57 999 mls/hr STAT ONE Administration Ceftriaxone Sodium/Dextrose 1 50 mls @ 100 mls/hr 05/03/21 14:15 05/03/21 14:50 gm/ Premix IV 05/03/21 14:44 100 mls/hr ONETIME ONE Administration Iopamidol 100 ml 05/03/21 14:40 05/03/21 14:40 Iopamidol 755 Mg/Ml 500 Ml Multipack Bottle IVPUSH 05/03/21 14:41 100 ml ONETIME STA Administration Ketorolac Tromethamine 30 mg 05/03/21 13:51 05/03/21 14:19 Ketorolac 30 Mg/Ml Sdv IVPUSH 05/03/21 13:52 30 mg ONETIME ONE Administration Morphine Sulfate 4 mg 05/03/21 15:01 05/03/21 15:10 Morphine 4 Mg/Ml Syringe IVPUSH 05/03/21 15:02 4 mg ONETIME ONE Administration Ondansetron HCl 4 mg 05/03/21 13:51 05/03/21 14:19 Ondansetron 4 Mg/2 Ml Sdv IVPUSH 05/03/21 13:52 4 mg ONETIME ONE Administration Departure - Departure Time of Disposition: 16:14 Disposition: DC/Tfer to [facility] Clinical Impression: Ureterolithiasis, Acute pyelonephritis Sepsis Qualifiers: Sepsis type: sepsis due to unspecified organism Sepsis acute organ dysfunction status: unspecified Qualified Code(s): A41.9 - Sepsis, unspecified organism - Discharge Information Referrals: PCP,None [Primary Care Provider] - Forms: ED Department Discharge Sepsis Event Note (ED) - Focused Exam Vital Signs: Vital Signs Temp Temp Pulse Resp BP Pulse Ox 05/03/21 16:45 99.3 F 92 17 149/96 H 96 05/03/21 16:18 107 H 17 156/94 H 98 05/03/21 16:02 111 H 17 138/89 98 05/03/21 15:56 99.3 F 05/03/21 15:26 101.3 F H 05/03/21 15:22 101 F H 110 H 17 149/84 H 94 L 05/03/21 13:33 99.3 F 123 H 18 157/100 H 95 - My Orders Last 24 Hours: My Active Orders 05/03/21 13:44 CULTURE URINE [MREF] Stat 05/03/21 13:56 CULTURE BLOOD [BC] Stat Blood Culture x2 Reflex Set [OM.PC] Stat 05/03/21 14:21 CULTURE BLOOD [BC] Stat 05/03/21 16:15 Sodium Chloride 0.9% [Normal Saline] 1,000 ml IV STAT - Assessment/Plan Last 24 Hours: My Active Orders 05/03/21 13:44 CULTURE URINE [MREF] Stat 05/03/21 13:56 CULTURE BLOOD [BC] Stat Blood Culture x2 Reflex Set [OM.PC] Stat 05/03/21 14:21 CULTURE BLOOD [BC] Stat 05/03/21 16:15 Sodium Chloride 0.9% [Normal Saline] 1,000 ml IV STAT
[2021-05-03] MEDS ORDERED: Sodium Chloride 0.9% 1,000 ML IV SCH (16:15)
--- NOTE | 2021-05-03 17:03 | PCM.EKG ---
#1 Interpretation EKG Interpretation Comments: EKG done 05/03/2021 at 4:29 PM sinus tachycardia rate 101 VA interval 145 QT duration 477 [place] XIV QRS borderline repolarization abnormality QT prolonged ST and T normal impression no acute injury
== END 2021-05-03 16:55 ==
LOC: MW.ED 12:43
DX: A41.9 Sepsis, unspecified organism (principal); N10 Acute pyelonephritis; N13.2 Hydronephrosis with renal and ureteral calculous obstruction; I10 Essential (primary) hypertension; J45.909 Unspecified asthma, uncomplicated; Z88.0 Allergy status to penicillin; Z20.822 Contact with and (suspected) exposure to COVID-19
CPT/HCPCS: 36415; 74177; 80053; 81001; 81025; 83605; 83690; 85025; 87040; 87086; 87635; 93005; 96365; 96375; 99285; A9270; J0696; J1885; J2270; J2405; J7030; Q9967; U0002

== ENCOUNTER 2021-11-15 14:20 | Emergency (ER) | payer OTHER ==
[2021-11-15] MEDS ORDERED: Sodium Chloride 0.9% 1,000 ML IV ONE ×2 (14:44→16:10)
[2021-11-15] MEDS ORDERED: amLODIPine 5 MG Tab PO ONE (14:49)
[2021-11-15 15:28] LABS: BLOOD UREA NITROGEN,BUN 9 mg/dL (7.0-18.0); CARBON DIOXIDE,CO2 25.8 mmol/L (21.0-32.0); CHLORIDE,CL 103 mmol/L (98-107); GLUCOSE RANDOM 91 mg/dL (74-106); POTASSIUM,K 3.2 mmol/L (3.5-5.1); SODIUM,NA 137 mmol/L (136-145)
[2021-11-15] MEDS ORDERED: Ketorolac 30 MG/ML SDV IVPUSH ONE (15:57)
[2021-11-15] MEDS ORDERED: Ondansetron 4 MG/2 ML SDV IVPUSH ONE (16:10)
[2021-11-15] MEDS ORDERED: diphenhydrAMINE 50 MG/ML SDV IVPUSH ONE (16:10)
[2021-11-15] MEDS ORDERED: Metoclopramide 10 MG/2 ML SDV IV ONE (16:10)
== END 2021-11-15 18:00 | disposition home or self-care (01) ==
LOC: MW.ED 14:20
DX: R07.2 Precordial pain (principal); G43.909 Migraine, unspecified, not intractable, without status migrainosus; I10 Essential (primary) hypertension; Z88.0 Allergy status to penicillin
CPT/HCPCS: 36415; 71045; 80053; 81003; 81025; 85025; 93005; 96374; 96375; 99285; A9270; J1200; J1885; J2405; J2765; J7030; 93010; 99283

== ENCOUNTER 2023-11-14 17:44 | Emergency (ER) | payer OTHER ==
[2023-11-14 18:10] LABS: APPEARANCE,URINE CLEAR; BILIRUBIN,URINE NEGATIVE (NEGATIVE); COLOR,URINE YELLOW; GLUCOSE,URINE NEGATIVE (NEGATIVE); KETONES,URINE 40 mg/dL (NEGATIVE); LEUKOCYTE ESTERASE,URINE NEGATIVE (NEGATIVE); NITRITE,URINE NEGATIVE (NEGATIVE); OCCULT BLOOD,URINE TRACE-INTACT (NEGATIVE); PROTEIN,URINE NEGATIVE (NEGATIVE); UROBILINOGEN,URINE 0.2 EU/dL (<2.0)
[2023-11-14] MEDS: Sodium Chloride 0.9% 1,000 ML IV STA ×2 (18:24→18:27)
[2023-11-14] MEDS: cefTRIAXone 1 GM in Sodium Chloride 0.9% 50 ML IV STA (18:25)
[2023-11-14 18:30] LABS: BACTERIA,URINE RARE (NEGATIVE); EPITHELIAL CELLS,URINE RARE (NONE-FEW); RBC,URINE 0-1 (0-2/HPF)
[2023-11-14] MEDS: Acetaminophen 500 MG Tab PO STA (18:34)
[2023-11-14] MEDS: diphenhydrAMINE 50 MG/ML SDV IVPUSH STA (18:34)
[2023-11-14] MEDS: Ketorolac 30 MG/ML SDV IVPUSH STA (18:35)
[2023-11-14] MEDS: Metoclopramide 10 MG/2 ML SDV IVPUSH STA (18:36)
[2023-11-14 18:41] LABS: BASOPHILS ABSOLUTE AUTO 0.01 K/uL (0.00-0.20); BASOPHILS PERCENT AUTO 0.3 % (0.0-1.0); HEMATOCRIT 38.8 % (37.0-47.0); HEMOGLOBIN 13.5 g/dL (12.0-16.0); IMMATURE GRAN ABSOLUTE AUTO 0.01 K/uL (0.00-0.05); IMMATURE GRAN PERCENT AUTO 0.3 % (0.0-0.4); LYMPHOCYTES PERCENT AUTO 22.3 % (24.0-44.0); MEAN CORPUSCULAR HEMOGLOBIN 32.2 pg (28.0-32.0); MEAN CORPUSCULAR HGB CONC 34.8 g/dL (32.0-36.0); MEAN CORPUSCULAR VOLUME 92.6 fL (83.0-99.0); MEAN PLATELET VOLUME 11.5 fL (9.4-12.3); MONOCYTES ABSOLUTE AUTO 0.64 K/uL (0.00-0.80); MONOCYTES PERCENT AUTO 17.9 % (0.0-8.0); NEUTROPHILS ABSOLUTE AUTO 2.12 K/uL (1.80-7.70); NEUTROPHILS PERCENT AUTO 59.2 % (41.0-71.0); PLATELET COUNT,PLT 203 K/uL (150-400); RED BLOOD CELL COUNT 4.19 M/uL (4.10-5.30); WHITE BLOOD CELL COUNT,WBC 3.58 K/uL (3.9-11.3)
[2023-11-14 19:03] LABS: A/G RATIO 0.9 (0.9-1.6); ALBUMIN 4.2 g/dL (3.4-5.0); BILIRUBIN TOTAL 0.7 mg/dL (0.2-1.0); CALCIUM 9.4 mg/dL (8.5-10.1); CARBON DIOXIDE,CO2 20.9 mmol/L (21.0-32.0); CREATININE 0.8 mg/dL (0.6-1.0); EST CRCL DRUG DOSING (CG) 84.28 mL/min; POTASSIUM,K 3.6 mmol/L (3.5-5.1); PROTEIN TOTAL,TP 8.9 g/dL (6.4-8.2)
[2023-11-14] MEDS: Iopamidol 755 MG/ML 500 ML Multipack Bottle IVPUSH ONE (19:39)
[2023-11-14 19:44] LABS: CORONAVIRUS COVID-19 NAA NEGATIVE (NEGATIVE); INFLUENZA A NAA NEGATIVE (NEGATIVE); INFLUENZA B NAA NEGATIVE (NEGATIVE)
== END 2023-11-14 21:31 | disposition home or self-care (01) ==
LOC: MW.ED 17:44
DX: N39.0 Urinary tract infection, site not specified (principal); I10 Essential (primary) hypertension; F17.210 Nicotine dependence, cigarettes, uncomplicated; Z75.8 Other problems related to medical facilities and other health care; Z88.0 Allergy status to penicillin; Z79.899 Other long term (current) drug therapy; Z86.19 Personal history of other infectious and parasitic diseases
CPT/HCPCS: 0240U; 36415; 74177; 80053; 81001; 81025; 83605; 83690; 85025; 87040; 87086; 87088; 87186; 96361; 96365; 96375; 99284; A9270; J0696; J1200; J1885; J2765; J3490; J7030; Q9967

== ENCOUNTER 2024-11-10 22:34 | Emergency (ER) | payer MEDICAID ==
[2024-11-10] MEDS ORDERED: Sodium Chloride 0.9% 2.5 ML Syringe FLUSH PRN (23:04)
[2024-11-10] MEDS ORDERED: Sodium Chloride 0.9% 10 ML Syringe FLUSH PRN (23:04)
[2024-11-10] MEDS: cefTRIAXone 1 GM Vial IV ONE (23:10)
[2024-11-10 23:12] LABS: BASOPHILS ABSOLUTE AUTO 0.02 K/uL (0.00-0.20); BASOPHILS PERCENT AUTO 0.2 % (0.0-1.0); EOSINOPHILS ABSOLUTE AUTO 0.08 K/uL (0.00-0.45); EOSINOPHILS PERCENT AUTO 0.6 % (0.0-6.0); HEMOGLOBIN 14.2 g/dL (12.0-16.0); IMMATURE GRAN ABSOLUTE AUTO 0.04 K/uL (0.00-0.05); IMMATURE GRAN PERCENT AUTO 0.3 % (0.0-0.4); LYMPHOCYTES ABSOLUTE AUTO 1.14 K/uL (1.00-4.80); LYMPHOCYTES PERCENT AUTO 8.9 % (24.0-44.0); MEAN CORPUSCULAR HEMOGLOBIN 32.1 pg (28.0-32.0); MEAN CORPUSCULAR HGB CONC 34.6 g/dL (32.0-36.0); MEAN CORPUSCULAR VOLUME 92.6 fL (83.0-99.0); MEAN PLATELET VOLUME 12.7 fL (9.4-12.3); MONOCYTES ABSOLUTE AUTO 1.02 K/uL (0.00-0.80); NEUTROPHILS ABSOLUTE AUTO 10.45 K/uL (1.80-7.70); PLATELET COUNT,PLT 183 K/uL (150-400); RED BLOOD CELL COUNT 4.43 M/uL (4.10-5.30); WHITE BLOOD CELL COUNT,WBC 12.75 K/uL (3.9-11.3)
[2024-11-10] MEDS: Sodium Chloride 0.9% 1,000 ML IV ONE (23:14)
[2024-11-10 23:22] LABS: A/G RATIO 0.9 (0.9-1.6); BILIRUBIN TOTAL 1.2 mg/dL (0.2-1.0); CARBON DIOXIDE,CO2 22.3 mmol/L (21.0-32.0); CREATININE 0.8 mg/dL (0.6-1.0); EST CRCL DRUG DOSING (CG) 83.54 mL/min; POTASSIUM,K 3.4 mmol/L (3.5-5.1); PROTEIN TOTAL,TP 8.4 g/dL (6.4-8.2)
[2024-11-11] MEDS: cefTRIAXone 2 GM in Sodium Chloride 0.9% 50 ML IV ONE (00:05)
[2024-11-11] MEDS: Ondansetron 4 MG/2 ML SDV IVPUSH ONE (00:11)
[2024-11-11] MEDS ORDERED: Iopamidol 755 MG/ML 500 ML Multipack Bottle IVPUSH ONE (00:20)
[2024-11-11 00:24] LABS: LACTIC ACID 0.9 mmol/L (0.4-2.0)
[2024-11-11] MEDS: Metoprolol Tartrate 5 MG/5 ML SDV IVPUSH ONE (02:54)
== END 2024-11-11 10:40 ==
LOC: MW.ED 22:34
DX: N15.1 Renal and perinephric abscess (principal); I10 Essential (primary) hypertension; Z88.0 Allergy status to penicillin
CPT/HCPCS: 36415; 71045; 74177; 80053; 81001; 81025; 83605; 85025; 87040; 87428; 87651; 96361; 96365; 96375; 99285; J0696; J2405; J3490; J7030